=== PATIENT | female | born 2000 | race Caucasian/White ===

== ENCOUNTER 2022-01-30 08:46 | Emergency (ER) | payer BC ==
--- OUTSIDE RECORDS SUMMARY | 2022-01-30 08:52 | XMS REPORT | Continuity of Care Document ---
:2000 Author Organization [facility] t Address [address] [place] [address] Care Team Providers Name Role Phone Pcp, Does Not Have A Primary Care Physician Alice CONSTRUCTION ADMINISTRATIVE ASSISTANT Attending Clinician ALICE Attending Clinician Unavailable Payers Payer Name Policy Type Policy Number Effective Date Expiration Date S ource Problems Condition Condition Condition Status Onset Resolution Last Treating Co mments Source Name Details Category Date Date Treatment Clinician Date Nausea and Nausea and Disease Active U nivers vomiting, vomiting, 16 ity of intract[place] 00 Medical vomiting vomiting Branch not not specified, specified, unspecifie unspecifie d vomiting d vomiting type type Fatigue, Fatigue, Disease Active Unive rs unspecifie unspecifie -16 it y of d type d type 00:00: [place] 00 Medical Branch Cough Cough Disease Active Univers 2-16 ity of 00:00: [place] [address] Medical Branch Allergies, Adverse Reactions, Alerts Allergy Allergy Status Severity Reaction(s) Onset Inactive Treating Comm ents Source Name Type Date Date Clinician NO KNOWN Drug Active Univers ALLERGIE Class ity of S [facility] Social History Social Habit Start Date Stop Date Quantity Comments Source Exposure to Not sure University of SARS-CoV-2 [facility] (event) Branch Alcohol intake 2021-12-10 2021-12-10 Lifetime University of 00:00:00 00:00:00 non-drinker [facility] (finding) [place] Tobacco use and 2021-07-18 2021-07-18 Never used Universit y of exposure 00:00:00 00:00:00 [facility] Sex Assigned At 2000 2000 Universit y of 00:00:00 00:00:00 [facility] Smoking Status Start Date Stop Date Source Never smoker [facility] Medications Ordered Filled Start Stop Current Ordering Indication Dosage Frequency Signature Comments Components Source Medication Medication Date Date Medication? Clinician (SIG) Name Name cetirizine 2021- Yes [id number] 10mg Take 1 Univers (ZYRTEC) 10 2-16 -19 tablet by it y of mg tablet 00:00: 04:59 mouth [place] 00 :00 daily for Medical 30 days. Branch cetirizine 2021- Yes [id number] 10mg Take 1 Univers (ZYRTEC) 10 2-16 -19 tablet by it y of mg tablet 00:00: 04:59 mouth [place] 00 :00 daily for Medical 30 days. Branch ondansetron 2021- Yes [id number] 4mg Take 1 Univers 4 mg 2-15 02-21 tablet by ity of disintegrat 00:00[place] 05:59 [place] tablet 00 :00 every 8 Medica l (eight) Branch hours as needed for Nausea and Vomiting (N/V) for up to 5 days. ondansetron 2021- Yes [id number] 4mg Take 1 Univers 4 mg 2-15 02-21 tablet by ity of disintegrat 00:00[place] 05:59 [place] tablet 00 :00 every 8 Medica l (eight) Branch hours as needed for Nausea and Vomiting (N/V) for up to 5 days. XULANE Yes APPLY 1 Univers 150-35 1-28 PATCH TO ity of mcg/24 hr 00:00: SKIN [place] patch 00 TRANSDERMA Medical L WEEKLY Branch FOR 84 DAYS XULANE Yes APPLY 1 Univers 150-35 1-28 PATCH TO ity of mcg/24 hr 00:00: SKIN [place] patch 00 TRANSDERMA Medical L WEEKLY Branch FOR 84 DAYS Vital Signs Vital Name Observation Time Observation Value Comments Source Systolic blood 2021-12-10 17:21:00 106 mm[Hg] Univer sity of pressure [facility] Diastolic blood 2021-12-10 17:21:00 64 mm[Hg] Unive rsity of [facility] Heart rate 2021-12-10 17:21:00 81 /min [facility] Body temperature 2021-12-10 17:21:00 36.61 Jessika [facility] Body height 2021-12-10 17:21:00 162.6 cm [facility] Body weight 2021-12-10 17:21:00 76.204 kg [facility] BMI 2021-12-10 17:21:00 28.84 kg/m2 [facility] Oxygen saturation in 2021-12-10 17:21:00 97 /min [facility] Arterial blood by [facility] Pulse oximetry Branch Procedures This patient has no known procedures. Encounters Start End Encounter Admission Attending Care Care Encounter Source Date/Time Date/Time Type Type Clinicians Facility Department ID 2021-12-12 2021-12-12 Telephone Alice [facility] [id number] [facility] 00:00:00 00:00:00 [place] [id number] it y of [place] [id number] [place] as JIMY?BLEA [id number] [address] MEDICAL OFFICE BUILDING 2021-12-10 2021-12-10 Outpatient R ALICE [facility] [id number] Univers 11:00:00 11:57:28 KELLI lee [facility] 2021-12-10 2021-12-10 Office Alice [facility] [id number] Univers 11:00:00 11:57:28 Visit [place] [id number] it y of [place] [id number] [place] as JIMY?BLEA [id number] [address] MEDICAL OFFICE BUILDING Results This patient has no known results.
[2022-01-30 09:27] LABS: Urine Blood 2+ (Negative); Urine Glucose Negative (Negative); Urine Protein Negative (Negative); Urine pH 6.5 (5.0-7.0)
[2022-01-30 09:32] LABS: Absolute Lymphocytes (CBC) 3.6 K/uL (0.7-4.9); Hematocrit 44.6 % (36.0-45.0); Lymphocytes % 43.8 % (15.3-44.8); MPV 7.8 fL (7.6-11.3); RBC Red Blood Cell Count 5.23 M/uL (3.86-4.86)
[2022-01-30 09:41] LABS: BUN Blood Urea Nitrogen 11 mg/dL (7-18); Bicarbonate 27 mmol/L (21-32); Glucose Level 84 mg/dL (74-106); Potassium 4.1 mmol/L (3.5-5.1); Sodium Level 138 mmol/L (136-145)
[2022-01-30 10:00] LABS: Urine Bacteria 20-50 /HPF (<20)
--- NOTE | 2022-01-30 10:16 | RAD REPORT ---
EXAM DESCRIPTION: CT - Stone Protocol - 01/30/2022 10:06 am CLINICAL HISTORY: Flank pain. FLANK PAIN COMPARISON: No comparisons TECHNIQUE: Axial images were obtained without oral or IV contrast. Lack of contrast limits solid org an and vascular assessment. The [id number] spans the entirety of the system partially obscuring uppermost abdomen and lung bases. Coronal reformatted images were obtained and reviewed. All CT scans are performed using dose optimization technique as appropriate and may include automated exposure control or mA/KV adjustment according to patient size. FINDINGS: The lower lung patel are clear. Imaged portions of the liver and spleen show no suspicious findings on non-contrast imaging. The panc reas and adrenal glands are normal. No pathologic lymphadenopathy in the abdomen or pelvis. 3 mm calculus is suspected in the distal right ureter with mild right hydronephrosis. Additional 3 mm stone is also present in the inferior calyx right kidney. 2 mm calculus is seen midpole lateral gonzález x left kidney. No bowel obstruction, free air, free fluid or abscess. Normal appendix noted. No significant bony abnormality. IMPRESSION: 3 mm calculus in the distal right ureter is suspected with mild right hydronephrosis. Additional bilateral nephrolithiasis.
[2022-01-30] MEDS ORDERED: ONDANSETRON 4 MG/2 ML VIAL ONE (10:18)
[2022-01-30] MEDS ORDERED: KETOROLAC 30 MG/ML INJ ONE (10:18)
[2022-01-30] MEDS ORDERED: TAMSULOSIN 0.4 MG SR CAP ONE (10:47)
[2022-01-30] MEDS ORDERED: MAGNESIUM SULFATE 1 gm IVPB 1 GM/100 ML BAG IV ONE (10:48)
--- NOTE | 2022-01-30 11:21 | ER ---
Nurse's Notes [facility] Name: Yahaira So Age: 21 yrs Sex: Female : 2000 Arrival Date: 01/30/2022 Time: 08:51 Bed 17 Private MD: Diagnosis: Calculus of kidney with calculus of ureter Presentation: 01/30 09:08 Chief complaint: Patient states: R flank pain, N/V and difficulty urinating that ph started this morning, hx of kidney stones and states that this feels the same. Coronavirus screen: Vaccine status: Patient reports receiving the 2nd dose of the covid vaccine. Ebola Screen: No symptoms or risks identified at this time. Initial Sepsis Screen: Does the patient meet any 2 criteria? No. Patient's initial sepsis screen is negative. Does the patient have a suspected source of infection? No. Patient's initial sepsis screen is negative. Risk Assessment: Do you want to hurt yourself or someone else? Patient reports no desire to harm self or others. Onset of symptoms was January 30, 2022. 09:08 Method Of Arrival: Ambulatory ph 09:08 Acuity: LISA 3 ph Triage Assessment: 09:12 General: Appears in no apparent distress. comfortable, Behavior is calm, cooperative, ph appropriate for age, Denies fever. Pain: Complains of pain in posterior aspect of right lateral abdomen and anterior aspect of right lateral abdomen Pain radiates to right lower quadrant. Neuro: Level of Consciousness is awake, alert, obeys commands, Oriented to person, place, time, situation. Cardiovascular: Capillary refill < 3 seconds in bilateral fingers Patient's skin is warm and dry. Respiratory: Airway is patent Respiratory effort is even, unlabored. GI: Reports lower abdominal pain, nausea, vomiting. : Reports inability to void, pain in right flank(s). Derm: Skin is intact, is healthy with good turgor, Skin is pink, warm \T\ dry. Musculoskeletal: Circulation, motion, and sensation intact. Range of motion: intact in all extremities. 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 - Social history:: Smoking status: Patient denies any tobacco usage or history of. Screenin:03 Abuse screen: Denies threats or abuse. Denies injuries from another. Nutritional ph screening: No deficits noted. Tuberculosis screening: No symptoms or risk factors identified. Fall Risk None identified. Assessment: 09:14 General: SEE TRIAGE ASSESSMENT. ph 11:21 Reassessment: Patient appears in no apparent distress at this time. Patient and/or ph family updated on plan of care and expected duration. Pain level reassessed. Patient is alert, oriented x 3, equal unlabored respirations, skin warm/dry/pink. D/C pending completion of IV magnesium. Vital Signs: 09:08 BP 111 / 84; Pulse 82; Resp 18; Temp 97.5; Pulse Ox 99% on R/A; Weight 74.84 kg; Height ph 5 ft. 4 in. (162.56 cm); Pain 3/10; 11:00 BP 108 / 78; Pulse 76; Resp 18; Pulse Ox 99% on R/A; ph 12:00 BP 115 / 76; Pulse 79; Resp 16; Temp 97.9; Pulse Ox 100% on R/A; ph 09:08 Body Mass Index 28.32 (74.84 kg, 162.56 cm) ph ED Course: 08:51 Patient arrived in ED. mr 08:56 Lela Mckeon, [facility] kb 08:56 Leon Hunt MD is Attending Physician. kb 09:03 Sabrina Loo, LJ is Primary Nurse. ph 09:11 Triage completed. ph 09:11 Arm band placed on right wrist. ph 09:14 Patient has correct armband on for positive identification. Bed in low position. Call ph light in reach. Side rails up X 1. Pulse ox on. NIBP on. Door closed. Noise minimized. Warm blanket given. Pillow given. Head of bed. 09:14 Initial lab(s) drawn, by ED staff, sent to lab. Urine collected: clean catch specimen. ph Inserted saline lock: 20 gauge in right antecubital area, using aseptic technique. Blood collected. 10:09 CT Stone Protocol In Process Unspecified. EDMS 12:40 No provider procedures requiring assistance completed. IV discontinued, intact, ph bleeding controlled, No redness/swelling at site. Pressure dressing applied. Administered Medications: 10:10 Drug: Zofran (Ondansetron) 4 mg Route: IVP; Site: right antecubital; ph 12:40 Follow up: Response: No adverse reaction ph 10:15 Drug: Ketorolac 15 mg Route: IVP; Site: right antecubital; ph 12:40 Follow up: Response: No adverse reaction ph 11:10 Drug: Magnesium Sulfate 1 grams Route: IVPB; Infused Over: 1 hrs; Site: right ph antecubital; 12:40 Follow up: Response: No adverse reaction; IV Status: Completed infusion ph 11:21 Not Given (Patient Refused): Flomax (tamsulosin) 0.4 mg PO once ph Outcome: 11:20 Discharge ordered by . kb 12:43 Patient left the ED. ph 12:43 Discharged to home ambulatory, with significant other. ph 12:43 Condition: good 12:43 Discharge instructions given to patient, Instructed on discharge instructions, follow up and referral plans. medication usage, Demonstrated understanding of instructions, follow-up care, medications, Prescriptions given X 3. Signatures: Dispatcher [employer] EDLela Soto, MARYSE DOUGLASS-Marie Reilly Patricia, RN RN ph
--- NOTE | 2022-01-30 11:21 | EDPHYS ---
Physician Documentation [facility] Name: Yahaira So Age: 21 yrs Sex: Female : 2000 Arrival Date: 01/30/2022 Time: 08:51 Bed 17 Private MD: ED Physician Leon Hunt HPI: 01/30 09:39 This 21 yrs old Female presents to ER via Ambulatory with complaints of Flank Pain, kb Back Pain. 09:39 The patient complains of pain in the right flank. The pain does not radiate. Onset: The kb symptoms/episode began/occurred this morning. Modifying factors: The symptoms are alleviated by nothing. the symptoms are aggravated by nothing. Associated signs and symptoms: Pertinent positives: difficulty urinating. Severity of pain: At its worst the pain was moderate in the emergency department the pain is unchanged. The patient has not experienced similar symptoms in the past. The patient has not recently seen a physician. 09:40 Pt reports right lateral abd pain that started this morning. States she has had kidney kb stones in the past and this feels the same. 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 - Social history:: Smoking status: Patient denies any tobacco usage or history of. ROS: 09:39 Constitutional: Negative for fever, chills, and weight loss. kb 09:39 Back: Positive for flank pain, on the right. 09:39 All other systems are negative. 09:40 : Positive for difficulty urinating. kb Exam: 09:39 Constitutional: This is a well developed, well nourished patient who is awake, alert, kb and in no acute distress. Head/Face: Normocephalic, atraumatic. ENT: Moist Mucous membranes Cardiovascular: Regular rate and rhythm with a normal S1 and S2. No gallops, murmurs, or rubs. No pulse deficits. Respiratory: Respirations even and unlabored. No increased work of breathing. Talking in full sentences Back: No spinal tenderness. No costovertebral tenderness. Full range of motion. Skin: Warm, dry with normal turgor. Normal color. MS/ Extremity: Pulses equal, no cyanosis. Neurovascular intact. Full, normal range of motion. Neuro: Awake and alert, GCS 15, oriented to person, place, time, and situation. Moves all extremities. Normal gait. Psych: Awake, alert, with orientation to person, place and time. Behavior, mood, and affect are within normal limits. 09:39 Abdomen/GI: Inspection: abdomen appears normal, Bowel sounds: normal, in all quadrants, Palpation: soft, in all quadrants, mild abdominal tenderness, in the anterior aspect of right lateral abdomen and right lower quadrant. Vital Signs: 09:08 BP 111 / 84; Pulse 82; Resp 18; Temp 97.5; Pulse Ox 99% on R/A; Weight 74.84 kg; Height ph 5 ft. 4 in. (162.56 cm); Pain 3/10; 11:00 BP 108 / 78; Pulse 76; Resp 18; Pulse Ox 99% on R/A; ph 12:00 BP 115 / 76; Pulse 79; Resp 16; Temp 97.9; Pulse Ox 100% on R/A; ph 09:08 Body Mass Index 28.32 (74.84 kg, 162.56 cm) ph MDM: 09:00 Patient medically screened. kb 09:38 Data reviewed: vital signs, nurses notes. Data interpreted: Pulse oximetry: on room air kb is 99 %. Interpretation: acceptable. 11:20 Counseling: I had a detailed discussion with the patient and/or guardian regarding: the kb historical points, exam findings, and any diagnostic results supporting the discharge/admit diagnosis, lab results, radiology results, the need for outpatient follow up, a urologist, to return to the emergency department if symptoms worsen or persist or if there are any questions or concerns that arise at home. 01/30 09:06 Order name: CBC with Diff; Complete Time: 09:35 kb 01/30 09:06 Order name: Basic Metabolic Panel; Complete Time: 09:42 kb 01/30 09:06 Order name: Urine Microscopic Only; Complete Time: 10:04 kb 01/30 09:27 Order name: Urine Dipstick-Ancillary; Complete Time: 09:28 EDMS 01/30 09:28 Order name: Urine --Ancillary (enter results); Complete Time: 10:01 dh3 01/30 10:08 Order name: Urine Culture EDMS 04/08 09:06 Order name: IV Start; Complete Time: 09:15 kb 0408 09:06 Order name: Urine Dipstick-Ancillary (obtain specimen); Complete Time: 09:16 kb 0408 09:06 Order name: Urine Test (obtain specimen); Complete Time: 09:16 kb 0408 09:06 Order name: CT Stone Protocol; Complete Time: 10:18 kb Administered Medications: 10:10 Drug: Zofran (Ondansetron) 4 mg Route: IVP; Site: right antecubital; ph 12:40 Follow up: Response: No adverse reaction ph 10:15 Drug: Ketorolac 15 mg Route: IVP; Site: right antecubital; ph 12:40 Follow up: Response: No adverse reaction ph 11:10 Drug: Magnesium Sulfate 1 grams Route: IVPB; Infused Over: 1 hrs; Site: right ph antecubital; 12:40 Follow up: Response: No adverse reaction; IV Status: Completed infusion ph 11:21 Not Given (Patient Refused): Flomax (tamsulosin) 0.4 mg PO once ph Disposition Summary: 01/30/22 11:20 Discharge Ordered Location: Home kb Condition: Stable kb Diagnosis - Calculus of kidney with calculus of ureter kb Followup: kb - With: Emergency Department - When: As needed - Reason: Worsening of condition Followup: kb - With: Private Physician - When: 2 - 3 days - Reason: Recheck today's complaints, Continuance of care, Re-evaluation by your physician Discharge Instructions: - Discharge Summary Sheet kb - Kidney Stones, [id number] kb Forms: - Medication Reconciliation Form kb - Thank You Letter kb - Antibiotic Education kb - Prescription Opioid Use kb - Work release form ph - Family Work Release ph Prescriptions: - Flomax 0.4 mg Oral capsule - take 1 capsule by ORAL route once daily 1/2 hour following the same meal each kb day; 10 capsule; Refills: 0, Product Selection Permitted - Zofran 4 mg Oral Tablet - take 1 tablet by ORAL route every 6 hours As needed; 20 tablet; Refills: 0, Product Selection Permitted - Diclofenac Sodium 75 mg Oral tablet,delayed release (DR/EC) - take 1 tablet by ORAL route 2 times per day As needed; 30 tablet; Refills: 0, Product Selection Permitted Addendum: 02/05/2022 18:31 Co-signature as Attending Physician, Leon Hunt MD I agree with the assessment and c humphreys plan of care. Signatures: Dispatcher [employer] Lela Mancilla, HEAD OF HUMAN RESOURCES-C HEAD OF HUMAN RESOURCES-Leon Lizama MD MD cha Hall, Patricia, RN RN ph
[2022-01-30 13:21] VITALS: BP 111/84; TEMP 97.5; O2SAT 99
== END 2022-01-30 12:43 | disposition home or self-care (01) ==
LOC: ER 08:46
DX: N20.2 Calculus of kidney with calculus of ureter (principal); Z87.442 Personal history of urinary calculi
CPT/HCPCS: 96365; 87088; 85025; 87086; 80048; 36415; 81025; 76377; 74176; 96375; 99284; J3475; J2405; 81003; 81015

== ENCOUNTER 2022-02-01 11:06 | Emergency (ER) | payer BC ==
--- OUTSIDE RECORDS SUMMARY | 2022-02-01 11:08 | XMS REPORT | Continuity of Care Document ---
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 Clinician ALICE Attending Clinician Unavailable Payers Payer Name Policy Type Policy Number Effective Date Expiration Date S ource Problems Condition Condition Condition Status Onset Resolution Last Treating Co mments Source Name Details Category Date Date Treatment Clinician Date Nausea and Nausea and Disease Active U nivers vomiting, vomiting, 2-16 ity of intract[place] 00 Medical vomiting vomiting Branch not not specified, specified, unspecifie unspecifie d vomiting d vomiting type type Fatigue, Fatigue, Disease Active Unive rs unspecifie unspecifie 2-16 it y of d type d type 00:00: [place] [address] Medical [place] Cough Cough Disease Active Univers 2-16 ity of 00:00: [address] Branch Allergies, Adverse Reactions, Alerts Allergy Allergy Status Severity Reaction(s) Onset Inactive Treating Comm ents Source Name Type Date Date Clinician NO KNOWN Drug Active Univers ALLERGIE Class ity of S [facility] Social History Social Habit Start Date Stop Date Quantity Comments Source Exposure to Not sure University of SARS-CoV-2 [facility] (event) Branch Alcohol intake 2021-12-10 2021-12-10 Lifetime University of 00:00:00 00:00:[address] non-[address] [facility] (finding) [place] Tobacco use and 2021-07-18 2021-07-18 Never used Universit y of exposure 00:00:00 00:00:00 [facility] Sex Assigned At 2000 2000 Universit y of 00:00:00 00:00:00 [facility] Smoking Status Start Date Stop Date Source Never smoker [facility] Medications Ordered Filled Start Stop Current Ordering Indication Dosage Frequency Signature Comments Components Source Medication Medication Date Date Medication? Clinician (SIG) Name Name cetirizine 2021- Yes [id number] 10mg Take 1 Univers (ZYRTEC) 10 2-16 -19 tablet by it y of mg tablet 00:00: 04:59 mouth [place] 00 :00 daily for Medical 30 days. Branch cetirizine 2021- Yes [id number] 10mg Take 1 Univers (ZYRTEC) 10 2-16 -19 tablet by it y of mg tablet 00:00: 04:59 mouth [place] 00 :00 daily for Medical 30 days. Branch ondansetron 2021- Yes [id number] 4mg Take 1 Univers 4 mg 2-15 -21 tablet by ity of disintegrat 00:00: 05:59 [place] tablet 00 :00 every 8 Medica l (eight) Branch hours as needed for Nausea and Vomiting (N/V) for up to 5 days. ondansetron 2021- Yes [id number] 4mg Take 1 Univers 4 mg 2-15 -21 tablet by ity of disintegrat 00:00: 05:59 [...] 17:21:00 106 mm[Hg] Univer sity of pressure [facility] Diastolic blood 2021-12-10 17:21:00 64 mm[Hg] Unive rsity of [facility] Heart rate 2021-12-10 17:21:00 81 /min [facility] acute hospital Body temperature 2021-12-10 17:21:00 36.61 Jessika [facility] height 2021-12-10 17:21:00 162.6 cm [facility] acute hospital Body weight 2021-12-10 17:21:00 76.204 kg [facility] acute hospital BMI 2021-12-10 17:21:00 28.84 kg/m2 General acute hospital Oxygen saturation in 2021-12-10 17:21:00 97 /min [facility] Arterial blood by [facility] Pulse oximetry Branch Procedures This patient has no known procedures. Encounters Start End Encounter Admission Attending Care Care Encounter Source Date/Time Date/Time Type Type Clinicians Facility Department ID 2021-12-12 2021-12-12 Telephone Alice [facility] [id number] Univers 00:00:00 00:00:00 [place] [id number] it y of [place] [id number] Allen as JIMY?BLEA [id number] [address] MEDICAL OFFICE BUILDING 2021-12-10 2021-12-10 Outpatient R ALICE [facility] [id number] Univers 11:00:00 11:57:28 KELLI yeseniamarie [facility] 2021-12-10 2021-12-10 Office Alice [facility] [id number] Univers 11:00:00 11:57:28 Visit [place] [id number] it y of [place] [id number] [place] as JIMY?BLEA [id number] [address] MEDICAL OFFICE BUILDING Results This patient has no known results.
[2022-02-01 12:20] LABS: Urine Blood 3+ (Negative); Urine Glucose Negative (Negative); Urine Protein Trace (Negative); Urine Specific Gravity 1.025 (1.005-1.030); Urine pH 6.5 (5.0-7.0)
[2022-02-01] MEDS ORDERED: CEFTRIAXONE 1000 MG/VIAL ONE (12:27)
[2022-02-01] MEDS ORDERED: ONDANSETRON 4 MG/2 ML VIAL ONE ×2 (12:28→14:44)
[2022-02-01] MEDS ORDERED: NA CHLORIDE 0.9% 100 ML IV ONE (12:28)
[2022-02-01] MEDS ORDERED: NA CHLORIDE 0.9% 1,000 ML ONE ×2 (12:28→12:40)
[2022-02-01] MEDS ORDERED: KETOROLAC 30 MG/ML INJ ONE (12:28)
[2022-02-01] MEDS ORDERED: MORPHINE 4 MG/ML SYR ONE ×2 (12:33→14:44)
[2022-02-01 12:38] LABS: Hematocrit 42.8 % (36.0-45.0); Lymphocytes % 38.8 % (15.3-44.8); MPV 7.6 fL (7.6-11.3); RBC Red Blood Cell Count 5.06 M/uL (3.86-4.86)
[2022-02-01 12:56] LABS: ALT/SGPT 19 U/L (12-78); AST/SGOT 13 U/L (15-37); Albumin 3.4 g/dL (3.4-5.0); Alkaline Phosphatase 86 U/L (45-117); BUN Blood Urea Nitrogen 11 mg/dL (7-18); Bicarbonate 24 mmol/L (21-32); Bilirubin Total 0.5 mg/dL (0.2-1.0); Glucose Level 85 mg/dL (74-106); Lipase 57 U/L (73-393); Potassium 4.3 mmol/L (3.5-5.1); Protein, Total 7.3 g/dL (6.4-8.2); Sodium Level 139 mmol/L (136-145)
--- NOTE | 2022-02-01 13:10 | RAD REPORT ---
EXAM DESCRIPTION: CTStone Protocol - 02/01/2022 12:53 pm CLINICAL HISTORY: KIDNEY STONES COMPARISON: Stone Protocol dated 01/30/2022 TECHNIQUE: CT of the abdomen and pelvis was performed. All CT scans are performed using dose optimization technique as appropriate and may include automated exposure control or mA/KV adjustment according to patient size. FINDINGS: Lower chest: No acute abnormality. Liver: No acute abnormality or suspicious lesions. Biliary: No biliary ductal dilatation. Stomach: No significant focal abnormality. Duodenum: No significant focal abnormality. Pancreas: No significant abnormality. Spleen: No significant abnormality. Adrenal: No suspicious lesions. Kidney/ureter: Mild right-sided hydroureteronephrosis. Two stones are now present in the right distal ureter, the larger stone measuring nearly 5 millimeters. On the previous CT, only 1 stone was presen t in the right ureter. Retroperitoneum: No retroperitoneal adenopathy. Vascular: No aneurysm. Bowel: No significant focal abnormality. Normal appendix . Peritoneum: No ascites or free air. Bladder: Grossly unremarkable. Reproductive: Simple appearing right adnexal cyst . Bones: No acute fracture. Other: n/a IMPRESSION: Mild right-sided hydroureteronephrosis now with 2 stones in the right distal ureter (pre viously one on 01/30/22) with the larger stone measuring 5 millimeters.
--- NOTE | 2022-02-01 13:50 | ER ---
Nurse's Notes [facility] Name: Yahaira So Age: 21 yrs Sex: Female : 2000 Arrival Date: 02/01/2022 Time: 11:09 Bed 6 Private MD: Diagnosis: Hydronephrosis with renal and ureteral calculous obstruction-3 mm and 5 mm distal right ureter;UTI/ Urinary tract infection, site not specified Presentation: 02/01 11:22 Chief complaint: Patient states: R flank pain with nausea started last night. Urinary ll1 frequency with oliguria. No fever. Coronavirus screen: Vaccine status: Patient reports receiving the 2nd dose of the covid vaccine. Client denies travel out of the [place] in the last 14 days. At this time, the client does not indicate any symptoms associated with coronavirus-19. Ebola Screen: Patient denies travel to an Ebola-affected area in the 21 days before illness onset. Initial Sepsis Screen: Does the patient meet any 2 criteria? No. Patient's initial sepsis screen is negative. Does the patient have a suspected source of infection? Yes: Dysuria/Frequency/Urgency/UTI. Risk Assessment: Do you want to hurt yourself or someone else? Patient reports no desire to harm self or others. Onset of symptoms was January 31, 2022. 11:22 Method Of Arrival: Ambulatory 1 11:22 Acuity: LISA 3 ll1 Triage Assessment: 11:25 General: Appears uncomfortable, Behavior is calm, cooperative, appropriate for age. ll1 Pain: Complains of pain in R flank Quality of pain is described as aching. GI: Reports lower abdominal pain, nausea. : Reports urinary frequency. Historical: - Allergies: 11:24 "cant swallow pills"; ll1 - PMHx: 11:24 Kidney stone; ll1 - PSHx: 11:24 None; ll1 - Immunization history:: Client reports receiving the 2nd dose of the Covid vaccine. - Social history:: Smoking status: Patient denies any tobacco usage or history of. - Family history:: not pertinent. Screenin:19 Abuse screen: Denies threats or abuse. Denies injuries from another. Nutritional ph screening: No deficits noted. Tuberculosis screening: No symptoms or risk factors identified. Fall Risk None identified. Assessment: 12:36 General: Appears in no apparent distress. uncomfortable, Behavior is calm, cooperative, ph appropriate for age. Pain: Complains of pain in posterior aspect of right lateral abdomen and anterior aspect of right lateral abdomen. Neuro: Level of Consciousness is awake, alert, obeys commands, Oriented to person, place, time, situation. Cardiovascular: Capillary refill < 3 seconds in bilateral fingers Patient's skin is warm and dry. Respiratory: Airway is patent Respiratory effort is even, unlabored. GI: Abdomen is non-distended, Abd is soft and non tender X 4 quads. Reports nausea, vomiting. : Reports inability to void, pain in right flank(s). Derm: Skin is intact, Skin is pink, warm \\T\\ dry. Musculoskeletal: Circulation, motion, and sensation intact. Range of motion: intact in all extremities. 13:42 Reassessment: Patient appears in no apparent distress at this time. Patient and/or ph family updated on plan of care and expected duration. Pain level reassessed. Patient is alert, oriented x 3, equal unlabored respirations, skin warm/dry/pink. Dr Hunt at bedside to speak w/ pt about CT results and possible admission. 14:10 Reassessment: Patient appears in no apparent distress at this time. Patient and/or ph family updated on plan of care and expected duration. Pain level reassessed. Patient is alert, oriented x 3, equal unlabored respirations, skin warm/dry/pink. 14:46 Reassessment: Patient appears in no apparent distress at this time. Patient and/or ph family updated on plan of care and expected duration. Pain level reassessed. Patient is alert, oriented x 3, equal unlabored respirations, skin warm/dry/pink. D/C pending completion of IV fluids. 15:35 Reassessment: Patient appears in no apparent distress at this time. Patient and/or ph family updated on plan of care and expected duration. Pain level reassessed. Patient is alert, oriented x 3, equal unlabored respirations, skin warm/dry/pink. Attempted to d/c patient, she reports that nausea and pain have returned, ERP notified, see MAR. 16:09 Reassessment: Again attempted to d/c pt, pt continues to c/o pain and nausea, refused ph PO states, " I can't swallow pills." ERP notified, see MAR. 16:55 Reassessment: Patient appears in no apparent distress at this time. Patient and/or ph family updated on plan of care and expected duration. Pain level reassessed. Patient is alert, oriented x 3, equal unlabored respirations, skin warm/dry/pink. Pt reports that pain has improved after medication, continues to report nausea, small amount of vomiting noted, pt states, " I am ready to go home though." Instructed pt to return to ED if she is unable to hold down fluids at home, emphasized the importance of staying hydrated at home in order to pass kidney stones, pt states that she will return to ED if vomiting cannot be controlled at home. Vital Signs: 11:22 BP 121 / 89; Pulse 82; Resp 17; Temp 98.2; Pulse Ox 97% ; Weight 73.94 kg; Height 5 ft. ll1 4 in. (162.56 cm); Pain 9/10; 13:00 BP 110 / 71; Pulse 85; Resp 18; Pulse Ox 100% on R/A; ph 14:00 BP 119 / 87; Pulse 92; Resp 16; Pulse Ox 98% on R/A; ph 15:00 BP 123 / 80; Pulse 95; Resp 16; Pulse Ox 100% on R/A; ph 16:11 BP 119 / 83; Pulse 97; Resp 18; Pulse Ox 100% on R/A; ph 11:22 Body Mass Index 27.98 (73.94 kg, 162.56 cm) ll1 ED Course: 11:09 Patient arrived in ED. rg4 11:24 Triage completed. ll1 11:24 Arm band placed on Patient placed in an exam room, on a stretcher. ll1 12:14 Leon Hunt MD is Attending Physician. christie 12:19 Sabrina Loo, JL is Primary Nurse. ph 12:19 Patient has correct armband on for positive identification. Bed in low position. Call ph light in reach. Side rails up X 1. Pulse ox on. NIBP on. Door closed. Noise minimized. 12:36 Initial lab(s) drawn, by me, sent to lab. Inserted saline lock: 20 gauge in right ph antecubital area, using aseptic technique. Blood collected. 12:55 CT Stone Protocol In Process Unspecified. EDMS 13:48 Ronal Hanna MD is Referral Physician. christie 16:15 No provider procedures requiring assistance completed. ph 17:00 IV discontinued, intact, bleeding controlled, No redness/swelling at site. Pressure ph dressing applied. Administered Medications: 12:33 Drug: Zofran (Ondansetron) 4 mg Route: IVP; Site: right antecubital; ph 13:00 Follow up: Response: No adverse reaction; Nausea is decreased ph 12:34 Drug: Ketorolac 30 mg Route: IVP; Site: right antecubital; ph 13:00 Follow up: Response: No adverse reaction; Pain is decreased ph 12:37 Drug: morphine 4 mg Route: IVP; Site: right antecubital; ph 13:00 Follow up: Response: No adverse reaction; Pain is decreased; RASS: Alert and Calm (0) ph 12:39 Drug: NS 0.9% 1000 ml Route: IV; Rate: 1 bolus; Site: right antecubital; ph 14:00 Follow up: Response: No adverse reaction; IV Status: Completed infusion; IV Intake: ph 1000ml 14:07 Drug: Rocephin (cefTRIAXone) 1 grams Route: IV; Rate: per protocol; Site: left vg1 antecubital; 14:30 Follow up: Response: No adverse reaction; IV Status: Completed infusion ph 14:43 Drug: Zofran (Ondansetron) 4 mg Route: IVP; Site: left antecubital; ph 15:00 Follow up: Response: No adverse reaction; Nausea is decreased ph 14:44 Drug: NS 0.9% 1000 ml Route: IV; Rate: 1 bolus; Site: left antecubital; ph 15:00 Follow up: IV Status: Completed infusion; IV Intake: 1000ml ph 14:45 Drug: morphine 4 mg Route: IVP; Site: left antecubital; ph 15:00 Follow up: Response: No adverse reaction; Pain is decreased; RASS: Drowsy (-1) ph 15:40 Drug: morphine 2 mg Route: IVP; Site: left antecubital; ph 16:00 Follow up: Response: No adverse reaction; Pain is unchanged, physician notified ph 16:12 CANCELLED (Duplicate Order): morphine 2 mg IVP once; (PAIN>8) RASS on ADMN: Combtv4, ph Very Agttd3, Agttd2, Rstlss1, AlertClm0, Drwsy-1, LtSdtn-2, ModSdtn-3, DpSdtn-4, UnArsble-5 x2 16:13 Not Given (Patient Refused): Flomax (tamsulosin) 0.4 mg PO once ph 16:13 Drug: Phenergan (promethazine) 12.5 mg Route: IVP; Site: left antecubital; ph 16:50 Follow up: Response: No adverse reaction; Nausea unchanged ph 16:13 Drug: Dilaudid (HYDROmorphone) 1 mg {Note: mixed into fluid bolus.} Route: IVP; Site: ph left antecubital; 16:30 Follow up: Response: No adverse reaction; Pain is decreased; RASS: Drowsy (-1) ph 16:13 Drug: NS 0.9% 500 ml Route: IV; Rate: bolus; Site: left antecubital; ph 16:50 Follow up: Response: No adverse reaction; IV Status: Completed infusion ph 16:14 Not Given (Patient Refused): Cipro (ciprofloxacin) 250 mg PO once ph Intake: 14:00 IV: 1000ml; Total: 1000ml. ph 15:00 IV: 1000ml; Total: 2000ml. ph Outcome: 13:50 Discharge ordered by . christie 17:04 Patient left the ED. ss 17:04 Discharged to home via wheelchair, with significant other. ph 17:04 Condition: good 17:04 Discharge instructions given to patient, significant other, Instructed on discharge instructions, follow up and referral plans. medication usage, Return to ED if vomiting cannot be controlled at home Demonstrated understanding of instructions, follow-up care, medications, Prescriptions given X 4. Signatures: Dispatcher [employer] EDMS Leon Hunt MD MD cha Smirch, Shelby, RN RN ss Sabrina Loo RN RN ph Naomi Stout Victoria RN RN juan carlos1 Ryan Valle, RN RN ll1 Corrections: (The following items were deleted from the chart) 11:24 11:24 PMHx: None; ll1 ll1 19:43 16:09 Reassessment: Again attempted to d/c pt, pt continues to c/o pain and nausea, ERP ph notified, see MAR ph
--- NOTE | 2022-02-01 13:51 | EDPHYS ---
Physician Documentation [facility] Name: Yahaira So Age: 21 yrs Sex: Female : 2000 Arrival Date: 02/01/2022 Time: 11:09 Bed 6 Private MD: KOSTAS Physician Leon Hunt HPI: 02/01 13:10 This 21 yrs old Female presents to ER via Ambulatory with complaints of christie Possible Kidney Stone. 13:10 The patient presents with abdominal pain in the lower abdomen, right lower quadrant. christie Onset: The symptoms/episode began/occurred 2 day(s) ago. The patient complains of pain in the right mid back. The pain radiates to the right mid back and right low back. Onset: The symptoms/episode began/occurred 2 day(s) ago. Modifying factors: The symptoms are alleviated by nothing. the symptoms are aggravated by nothing. The symptoms radiate to the right flank. Associated signs and symptoms: The patient has no apparent associated signs or symptoms. Associated signs and symptoms: none. Modifying factors: The symptoms are alleviated by nothing, the symptoms are aggravated by nothing. Historical: - Allergies: 11:24 "cant swallow pills"; ll1 - PMHx: 11:24 Kidney stone; ll1 - PSHx: 11:24 None; ll1 - Immunization history:: Client reports receiving the 2nd dose of the Covid vaccine. - Social history:: Smoking status: Patient denies any tobacco usage or history of. - Family history:: not pertinent. ROS: 13:10 Constitutional: Negative for fever, chills, and weight loss, Eyes: Negative for injury, christie pain, redness, and discharge, ENT: Negative for injury, pain, and discharge, Neck: Negative for injury, pain, and swelling, Cardiovascular: Negative for chest pain, palpitations, and edema, Respiratory: Negative for shortness of breath, cough, wheezing, and pleuritic chest pain, : Negative for injury, bleeding, discharge, and swelling, MS/Extremity: Negative for injury and deformity, Skin: Negative for injury, rash, and discoloration, Neuro: Negative for headache, weakness, numbness, tingling, and seizure. 13:10 Abdomen/GI: Positive for abdominal pain, nausea, vomiting, of the posterior aspect of right lateral abdomen, anterior aspect of right lateral abdomen and right lower quadrant. Exam: 13:10 Constitutional: This is a well developed, well nourished patient who is awake, alert, christie and in no acute distress. Head/Face: Normocephalic, atraumatic. Eyes: Pupils equal round and reactive to light, extra-ocular motions intact. Lids and lashes normal. Conjunctiva and sclera are non-icteric and not injected. Cornea within normal limits. Periorbital areas with no swelling, redness, or edema. ENT: Nares patent. No nasal discharge, no septal abnormalities noted. Tympanic membranes are normal and external auditory canals are clear. Oropharynx with no redness, swelling, or masses, exudates, or evidence of obstruction, uvula midline. Mucous membranes moist. Neck: Trachea midline, no thyromegaly or masses palpated, and no cervical lymphadenopathy. Supple, full range of motion without nuchal rigidity, or vertebral point tenderness. No Meningismus. Chest/axilla: Normal chest wall appearance and motion. Nontender with no deformity. No lesions are appreciated. Cardiovascular: Regular rate and rhythm with a normal S1 and S2. No gallops, murmurs, or rubs. Normal PMI, no JVD. No pulse deficits. Respiratory: Lungs have equal breath sounds bilaterally, clear to auscultation and percussion. No rales, rhonchi or wheezes noted. No increased work of breathing, no retractions or nasal flaring. Back: No spinal tenderness. No costovertebral tenderness. Full range of motion. Skin: Warm, dry with normal turgor. Normal color with no rashes, no lesions, and no evidence of cellulitis. MS/ Extremity: Pulses equal, no cyanosis. Neurovascular intact. Full, normal range of motion. Neuro: Awake and alert, GCS 15, oriented to person, place, time, and situation. Cranial nerves II-XII grossly intact. Motor strength 5/5 in all extremities. Sensory grossly intact. Cerebellar exam normal. Normal gait. 13:10 Abdomen/GI: Inspection: abdomen appears normal, Bowel sounds: normal, Palpation: mild abdominal tenderness, in the posterior aspect of right lateral abdomen, anterior aspect of right lateral abdomen and right lower quadrant, Liver: no appreciated palpable abnormalities, Hernia: not appreciated. Vital Signs: 11:22 BP 121 / 89; Pulse 82; Resp 17; Temp 98.2; Pulse Ox 97% ; Weight 73.94 kg; Height 5 ft. ll1 4 in. (162.56 cm); Pain 9/10; 13:00 BP 110 / 71; Pulse 85; Resp 18; Pulse Ox 100% on R/A; ph 14:00 BP 119 / 87; Pulse 92; Resp 16; Pulse Ox 98% on R/A; ph 15:00 BP 123 / 80; Pulse 95; Resp 16; Pulse Ox 100% on R/A; ph 16:11 BP 119 / 83; Pulse 97; Resp 18; Pulse Ox 100% on R/A; ph 11:22 Body Mass Index 27.98 (73.94 kg, 162.56 cm) ll1 MDM: 12:14 Patient medically screened. [facility] 13:13 Differential diagnosis: nephrolithiasis, pyelonephritis, UTI, diverticulitis, christie pancreatitis, appendicitis, Cholelithiasis, Hepatitis, Mesenteric ischemia or infarction, non-specific abd pain, pancreatitis, Peptic Ulcer Disease, Pyelonephritis, Ureterolithiasis, urinary tract infection. Data reviewed: vital signs, nurses notes, lab test result(s), radiologic studies, CT scan. Data interpreted: automation qa analyst: rate is 82 beats/min, rhythm is regular, Pulse oximetry: on room air is 97 %. Counseling: I had a detailed discussion with the patient and/or guardian regarding: the historical points, exam findings, and any diagnostic results supporting the discharge/admit diagnosis, lab results, radiology results. 02/01 12:15 Order name: CBC with Diff; Complete Time: 12:40 [facility] 02/01 12:15 Order name: CMP; Complete Time: 13:08 [facility] 02/01 12:15 Order name: Lipase; Complete Time: 13:08 [facility] 02/01 12:20 Order name: Urine Dipstick-Ancillary; Complete Time: 12:34 EDMS 02/01 12:15 Order name: CT Stone Protocol; Complete Time: 13:38 [facility] 02/01 12:15 Order name: IV Saline Lock; Complete Time: 12:39 [facility] 02/01 12:15 Order name: Labs collected and sent; Complete Time: 12:39 [facility] 02/01 12:15 Order name: Urine Dipstick-Ancillary (obtain specimen); Complete Time: 12:20 [facility] 02/01 12:15 Order name: Urine Test (obtain specimen); Complete Time: 12:20 christie Administered Medications: 12:33 Drug: Zofran (Ondansetron) 4 mg Route: IVP; Site: right antecubital; ph 13:00 Follow up: Response: No adverse reaction; Nausea is decreased ph 12:34 Drug: Ketorolac 30 mg Route: IVP; Site: right antecubital; ph 13:00 Follow up: Response: No adverse reaction; Pain is decreased ph 12:37 Drug: morphine 4 mg Route: IVP; Site: right antecubital; ph 13:00 Follow up: Response: No adverse reaction; Pain is decreased; RASS: Alert and Calm (0) ph 12:39 Drug: NS 0.9% 1000 ml Route: IV; Rate: 1 bolus; Site: right antecubital; ph 14:00 Follow up: Response: No adverse reaction; IV Status: Completed infusion; IV Intake: ph 1000ml 14:07 Drug: Rocephin (cefTRIAXone) 1 grams Route: IV; Rate: per protocol; Site: left vg1 antecubital; 14:30 Follow up: Response: No adverse reaction; IV Status: Completed infusion ph 14:43 Drug: Zofran (Ondansetron) 4 mg Route: IVP; Site: left antecubital; ph 15:00 Follow up: Response: No adverse reaction; Nausea is decreased ph 14:44 Drug: NS 0.9% 1000 ml Route: IV; Rate: 1 bolus; Site: left antecubital; ph 15:00 Follow up: IV Status: Completed infusion; IV Intake: 1000ml ph 14:45 Drug: morphine 4 mg Route: IVP; Site: left antecubital; ph 15:00 Follow up: Response: No adverse reaction; Pain is decreased; RASS: Drowsy (-1) ph 15:40 Drug: morphine 2 mg Route: IVP; Site: left antecubital; ph 16:00 Follow up: Response: No adverse reaction; Pain is unchanged, physician notified ph 16:12 CANCELLED (Duplicate Order): morphine 2 mg IVP once; (PAIN>8) RASS on ADMN: Combtv4, ph Very Agttd3, Agttd2, Rstlss1, AlertClm0, Drwsy-1, LtSdtn-2, ModSdtn-3, DpSdtn-4, UnArsble-5 x2 16:13 Not Given (Patient Refused): Flomax (tamsulosin) 0.4 mg PO once ph 16:13 Drug: Phenergan (promethazine) 12.5 mg Route: IVP; Site: left antecubital; ph 16:50 Follow up: Response: No adverse reaction; Nausea unchanged ph 16:13 Drug: Dilaudid (HYDROmorphone) 1 mg {Note: mixed into fluid bolus.} Route: IVP; Site: ph left antecubital; 16:30 Follow up: Response: No adverse reaction; Pain is decreased; RASS: Drowsy (-1) ph 16:13 Drug: NS 0.9% 500 ml Route: IV; Rate: bolus; Site: left antecubital; ph 16:50 Follow up: Response: No adverse reaction; IV Status: Completed infusion ph 16:14 Not Given (Patient Refused): Cipro (ciprofloxacin) 250 mg PO once ph Disposition Summary: 02/01/22 13:50 Discharge Ordered Location: Home christie Problem: new christie Symptoms: have improved christie Condition: Stable christie Diagnosis - Hydronephrosis with renal and ureteral calculous obstruction - 3 mm and 5 mm distal christie right ureter - UTI/ Urinary tract infection, site not specified christie Followup: christie - With: Private Physician - When: 2 - 3 days - Reason: Recheck today's complaints, Continuance of care, Re-evaluation by your physician Followup: christie - With: Ronal Hanna MD - When: 2 - 3 days - Reason: Recheck today's complaints, Re-evaluation by your physician Discharge Instructions: - Discharge Summary Sheet christie - Kidney Stones christie - Urinary Tract Infection, Adult christie - Kidney Stones, Gwam-gl-Dxct christie - Urinary Tract Infection, Adult, Rodi-ap-Giia christie - Hydronephrosis christie - Dietary Guidelines to Help Prevent Kidney Stones christie Forms: - Medication Reconciliation Form christie - Thank You Letter christie - Antibiotic Education christie - Prescription Opioid Use christie - Work release form ph Prescriptions: - Flomax 0.4 mg Oral capsule - take 1 capsule by ORAL route once daily 1/2 hour following the same meal each christie day; 20 capsule; Refills: 0, Product Selection Permitted - ondansetron 4 mg Oral tablet,disintegrating - place 1 tablet by TRANSLINGUAL route every 8 hours for 5 days; 20 tablet; christie Refills: 0, Product Selection Permitted - Cipro 250 mg Oral Tablet - take 1 tablet by ORAL route every 12 hours; 20 tablet; Refills: 0, Product christie Selection Permitted - Tylenol-Codeine #3 300 mg-30 mg Oral - take 2 tablet by ORAL route every 6 hours; 20 tablet; Refills: 0, Product christie Selection Permitted - ketorolac 10 mg Oral tablet - take 1 tablet by ORAL route every 6 hours not to exceed 40 mg in 24hrs; 12 christie tablet; Refills: 0, Product Selection Permitted Signatures: Dispatcher [employer] EDMS Leon Hunt MD MD cha Hall, Patricia, RN RN ph Girish, Sania, RN RN 1 Ryan Valle, RN RN ll1 Corrections: (The following items were deleted from the chart) 11:24 11:24 PMHx: None; ll1 ll1 12:28 11:59 URINE --ANCILLARY+UC.LAB.BRZ ordered. EDMS EDMS 16:12 16:12 morphine 2 mg IVP once; (PAIN>8) RASS on ADMN: Combtv4, Very Agttd3, Agttd2, ph Rstlss1, AlertClm0, Drwsy-1, LtSdtn-2, ModSdtn-3, DpSdtn-4, UnArsble-5 x2 ordered. ph
[2022-02-01] MEDS ORDERED: MORPHINE 2 MG/ML SYR ONE (15:49)
[2022-02-01] MEDS ORDERED: PROMETHAZINE INJ 25 MG/ML AMP ONE (16:04)
[2022-02-01] MEDS ORDERED: HYDROMORPHONE HCL 1 MG/ML INJ ONE (16:05)
[2022-02-01] MEDS ORDERED: NA CHLORIDE 0.9% 250 ML ONE (16:05)
[2022-02-01 17:09] VITALS: TEMP 98.2
[2022-02-01 17:13] VITALS: O2SAT 100
[2022-02-01 17:15] VITALS: BP 119/83
== END 2022-02-01 17:04 | disposition home or self-care (01) ==
LOC: ER 11:06
DX: N13.2 Hydronephrosis with renal and ureteral calculous obstruction (principal); N39.0 Urinary tract infection, site not specified; Z87.442 Personal history of urinary calculi
CPT/HCPCS: 85025; 36415; 81003; 83690; 80053; 76377; 74176; 99284; J2550; J2270; J1170; J7050; J7030 ×2; J2405 ×2

== ENCOUNTER 2022-06-04 17:21 | Emergency (ER) | payer BC ==
--- OUTSIDE RECORDS SUMMARY | 2022-06-04 17:24 | XMS REPORT | Continuity of Care Document ---
:2000 Author Organization [facility] t Address [address] [place] [address] [address]. Patel [address] [place] [address] Care Team Providers Name Role Phone PCP, PATIENT DOES NOT HAVE A Primary Care Physician Noa Martinez RN Attending Clinician Unavailable BERTIN WILSON Attending Clinician Unavailable Bertin Dennison Attending Clinician Jenifer Daly Attending Clinician JENIFER POZO Attending Clinician Unavailable Payers Payer Name Policy [...] y of d type d type 00:00: [place] 00 Medical Branch Cough Cough Disease Active Univers 2-16 ity of 00:00: [place] 00 Medical Branch Allergies, Adverse Reactions, Alerts Allergy Allergy Status Severity Reaction(s) Onset Inactive Treating Comm ents Source Name Type Date Date Clinician NO KNOWN Drug Active Univers ALLERGIE Class ity of S [facility] Social History Social Habit Start Date Stop Date Quantity Comments Source Exposure to 2022-03-19 2022-03-29 Not sure [facility] SARS-CoV-2 00:00:00 12:19:00 [facility] (event) Branch Alcohol intake 2022-03-29 2022-03-29 Lifetime University of 00:00:00 00:00:00 non-drinker [facility] (finding) [place] Tobacco use and 2021-07-18 2021-07-18 Never used Universit y of exposure 00:00:00 00:00:00 [facility] Sex Assigned At [birth year] Universit y of 00:00:00 00:00:00 [facility] Smoking Status Start Date Stop Date Source Never smoker [facility] Medications Ordered Filled Start Stop Current Ordering Indication Dosage Frequency Signature Comments Components Source Medication Medication Date Date Medication? Clinician (SIG) Name Name Cetirizine 2021- No [id number] 10mg Take 1 Univers 10 mg 4-11 07-11 capsule by ity of capsule 00:00: 04:59 mouth [place] 00 :00 daily for Medical 90 days. [place] Cetirizine 2021- No [id number] 10mg Take 1 Univers 10 mg 4-11 07-11 capsule by ity of capsule 00:00: 04:59 mouth [place] 00 :00 daily for Medical 90 days. [place] Cetirizine 2021- No [id number] 10mg Take 1 Univers 10 mg 4-11 07-11 capsule by ity of capsule 00:00: 04:59 mouth [place] 00 :00 daily for Medical 90 days. [facility] Yes 1 PATCH TO Unive rs 120-30 2-22 SKIN ity of mcg/24 hr 00:00: [place]SD[place]MA [place] [facility] 00 L WEEKLY Medical 84 DAYS [facility] Yes 1 PATCH TO Unive rs 120-30 2-22 SKIN ity of mcg/24 hr 00:00: [place] [facility] 00 L WEEKLY Medical 84 DAYS [facility] Yes 1 PATCH TO Unive rs 120-30 2-22 SKIN ity of mcg/24 hr 00:00: [place] [facility] 00 L WEEKLY Medical 84 DAYS [place] cetirizine 2021- No [id number] 10mg Take 1 Univers (ZYRTEC) 10 2-16 03-19 tablet by it y of mg tablet 00:00: 04:59 mouth [place] 00 :00 daily for Medical 30 days. [place] cetirizine 2021- No [id number] 10mg Take 1 Univers (ZYRTEC) 10 2-16 -19 tablet by it y of mg tablet 00:00: 04:59 mouth [place] 00 :00 daily for Medical 30 days. Branch ondansetron 2021- No [id number] 4mg Take 1 Univers 4 mg 2-15 -21 tablet by ity of disintegrat 00:00[place] 05:59 [place] :00 every 8 Medica l (eight) Branch hours as needed for Nausea and Vomiting (N/V) for up to 5 days. ondansetron 2021- No [id number] 4mg Take 1 Univers 4 mg 2-15 - tablet by ity of disintegrat 00:00[place] 05:59 [place] tablet 00 :00 every 8 Medica l (eight) Branch hours as needed for Nausea and Vomiting (N/V) for up to 5 days. [facility] Univers 150-35 1-28 PATCH TO ity of mcg/24 hr 00:00: SKIN [place] patch 00 TRANSDERMA Medical L WEEKLY Branch FOR 84 DAYS [facility] Yes APPLY 1 Univers 150-35 1-28 PATCH [...] Time Observation Value Comments Source Systolic blood 2022-03-29 17:19:00 112 mm[Hg] Univer sity of pressure [facility] Diastolic blood 2022-03-29 17:19:00 75 mm[Hg] Unive rsity [facility] Heart rate 2022-03-29 17:19:00 96 /min Universi ty of [place] [facility] [place] Body temperature 2022-03-29 17:19:00 36.78 Jessika [facility] ersity of [facility] Respiratory rate 2022-03-29 17:19:00 17 /min Univ ersity of [facility] Body height 2022-03-29 17:19:00 162.6 cm Universi ty of [place] [facility] [place] Body weight 2022-03-29 17:19:00 80.06 kg Universi ty of [place] [facility] BMI 2022-03-29 17:19:00 30.30 kg/m2 Universi ty of [facility] Branch Oxygen saturation in 2022-03-29 17:19:00 98 /min University of Arterial blood by [place] [facility] Pulse oximetry Branch Systolic blood 2021-12-10 17:21:00 106 mm[Hg] Univer sity of pressure [facility] Diastolic blood 2021-12-10 17:21:00 64 mm[Hg] Unive rsity of pressure [facility] Heart rate 2021-12-10 17:21:00 81 /min Universi ty [facility] [place] [facility] [place] Body temperature 2021-12-10 17:21:00 36.61 Jessika [facility] ersity of [facility] Body height 2021-12-10 17:21:00 162.6 cm Universi ty [facility] [place] [facility] Body weight 2021-12-10 17:21:00 76.204 kg Universi ty of [place] [facility] BMI 2021-12-10 17:21:00 28.84 kg/m2 Universi ty [facility] [place] [facility] [place] Oxygen saturation in 2021-12-10 17:21:00 97 /min University of Arterial blood by [facility] Pulse oximetry Branch Procedures Procedure Date / Time Performed Performing Clinician Sourc e POCT MOLECULAR STREP 2022-03-29 17:26:00 Bertin Wilson [facility] of [facility] Encounters Start End Encounter Admission Attending Care Care Encounter Source Date/Time Date/Time Type Type Clinicians Facility Department ID 2022-03-30 2022-03-30 Telephone Carolyn JAY [id number] [facility] 00:00:00 00:00:00 Noa HAYNES [id number] [facility] [id number] [place] as [id number] [address] 2022-03-29 2022-03-29 Outpatient R KATIE [facility] [id number] Univers 12:20:00 12:45:02 BERTIN ity [facility] 2022-03-29 2022-03-29 [facility] [id number] Univers 12:20:00 12:45:02 Care Bertin HEALTH [id number] it y of [place] [id number] [place] as JIMY?BLEA [id number] Ct christin KIM[address] [place] MEDICAL OFFICE BUILDING 2022-03-29 2022-03-29 Outpatient R [facility] [id number] Univers 12:20:00 12:20:00 [id number] [facility] 2022-02-02 2022-02-02 [facility] [id number] Univers 00:00:00 00:00:00 Jenifer HEALTH [id number] it y of [place] [id number] Allen as JIMY?BLEA [id number] [address] OFFICE [facility] 2021-12-12 2021-12-12 Telephone Alice [facility] [id number] Univers 00:00:00 00:00:00 Jenifer HEALTH [id number] it y of [place] [id number] Allen as JIMY?BLEA [id number] Ct christin MOYER [address] [place] [address] MEDICAL OFFICE [facility] 2021-12-10 2021-12-10 Outpatient R ALICE [facility] [id number] Univers 11:00:00 11:57:28 JENIFER [facility] 2021-12-10 2021-12-10 [facility] [id number] Univers 11:00:00 11:57:28 Visit Jenifer HEALTH [id number] it y of [place] [id number] [place] as JIMY?BLEA [id number] [address] MEDICAL OFFICE BUILDING Results Test Description Test Time Test Comments Results Result Comments Source POCT MOLECULAR STREP 2022-03-29 17:34:34 Test Item Value Reference Range Interpretation Comme nts POCT Molecular Strep (test code = 94497-2) Negative Negative Lab Interpretation (test code = 11419-9) Normal [facility]
[2022-06-04] MEDS ORDERED: KETOROLAC 30 MG/ML INJ ONE (18:00)
[2022-06-04] MEDS ORDERED: NA CHLORIDE 0.9% 1,000 ML ONE (18:00)
[2022-06-04] MEDS ORDERED: ONDANSETRON 4 MG/2 ML VIAL ONE (18:00)
[2022-06-04 18:13] LABS: Urine Blood 3+ (Negative); Urine Glucose Negative (Negative); Urine Protein Negative (Negative); Urine Specific Gravity >=1.030 (1.005-1.030)
[2022-06-04 18:28] LABS: Absolute Lymphocytes (CBC) 4.5 K/uL (0.7-4.9); Hematocrit 43.6 % (36.0-45.0); MCV 83.2 fL (80-100); MPV 7.6 fL (7.6-11.3); RBC Red Blood Cell Count 5.24 M/uL (3.86-4.86)
[2022-06-04 18:30] LABS: Urine Bacteria <20 /HPF (<20)
[2022-06-04 18:31] LABS: Urine Mucus Slight /HPF (None Seen)
[2022-06-04 18:39] LABS: Albumin 3.6 g/dL (3.4-5.0); Bilirubin Total 0.2 mg/dL (0.2-1.0); Potassium 4.1 mmol/L (3.5-5.1)
--- NOTE | 2022-06-04 19:12 | RAD REPORT ---
EXAM DESCRIPTION: CT - Abdomen Pelvis Wo Contrast - 06/04/2022 7:04 pm CLINICAL HISTORY: Abdominal pain. Right flank pain COMPARISON: Stone Protocol dated 02/01/2022 TECHNIQUE: CT imaging of the abdomen and pelvis was performed without contrast. Solid organ, bowel a nd vascular assessment is limited due to lack of IV and oral contrast. All CT scans are performed using dose optimization technique as appropriate and may include automated exposure control or mA/KV adjustment according to patient size. FINDINGS: The lower lung patel are clear. The liver, spleen, pancreas, adrenal glands are within normal limits for a limited non-contrast exami nation.Punctate calculus is present distal right ureter measuring 2 mm. Mild right hydronephrosis and hydroureter is seen. Additional punctate calculi seen upper left kidney. No bowel obstruction, free air, free fluid or abscess. The appendix is normal. The osseous structures are within normal limits. IMPRESSION: 2 mm stone distal right ureter resulting mild right hydronephrosis. A limited non-contrast examination was performed as detailed.
--- NOTE | 2022-06-04 19:25 | EDPHYS ---
Physician Documentation [facility] Name: Yahaira So Age: 21 yrs Sex: Female : 2000 Arrival Date: 06/04/2022 Time: 17:25 Bed 15 Private MD: ED Physician Erick Alejandro HPI: 06/04 19:24 This 21 yrs old Female presents to ER via Ambulatory with complaints of Possible Kidney ms3 Stone. 19:24 The patient complains of pain in the right low back. The pain does not radiate. Onset: ms3 The symptoms/episode began/occurred 2 hour(s) ago. Modifying factors: The symptoms are alleviated by nothing. the symptoms are aggravated by nothing. Associated signs and symptoms: Pertinent positives: nausea, vomiting. Severity of pain: At its worst the pain was severe a 10 / 10 in the emergency department the pain is unchanged. 21 yo fm with pmh of kidney stones presents for R flank pain that is rated a 10/10 located in her right flank and described as sharp. Patient states the discomfort began 2 hours travel pta. Patient denies alleviating or inciting factors.. 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 - Social history:: Smoking status: Patient denies any tobacco usage or history of. ROS: 19:24 Constitutional: Negative for fever, and chills. Neck: Negative for injury, pain, and ms3 swelling, Cardiovascular: Negative for chest pain, and palpitations. Respiratory: Negative for shortness of breath, cough, wheezing, and pleuritic chest pain. 19:24 Skin: Negative for injury, rash, and discoloration, Hematologic/Lymphatic: Negative for swollen nodes, abnormal bleeding, and unusual bruising. 19:24 Back: Positive for flank pain, on the right. 19:24 All other systems are negative. Exam: 19:24 Constitutional: This is a well developed, well nourished patient who is awake, alert, ms3 and in no acute distress. Head/Face: Normocephalic, atraumatic. Neck: Trachea midline, no cervical lymphadenopathy. Supple, full range of motion without nuchal rigidity, or vertebral point tenderness. No Meningismus. Chest/axilla: Normal chest wall appearance and motion. Nontender with no deformity. Cardiovascular: Regular rate and rhythm with a normal S1 and S2. No gallops, murmurs, or rubs. Normal PMI, no JVD. No pulse deficits. Respiratory: Lungs have equal breath sounds bilaterally, clear to auscultation and percussion. No rales, rhonchi or wheezes noted. No increased work of breathing, no retractions or nasal flaring. Abdomen/GI: Soft, non-tender, with normal bowel sounds. No distension or tympany. No guarding or rebound. No evidence of tenderness throughout. Skin: Warm, dry with normal turgor. Normal color with no rashes, no lesions, and no evidence of cellulitis. Psych: Awake, alert, with orientation to person, place and time. Behavior, mood, and affect are within normal limits. 19:24 Back: CVA tenderness, that is moderate, is noted on the right. Vital Signs: 17:47 BP 130 / 102; Pulse 69; Resp 18; Temp 98.1; Pulse Ox 100% on R/A; Weight 74.84 kg; em6 Height 5 ft. 4 in. (162.56 cm); Pain 10/10; 18:15 BP 116 / 74; Pulse 75; Resp 18; Pulse Ox 100% on R/A; em6 17:47 Body Mass Index 28.32 (74.84 kg, 162.56 cm) em6 MDM: 17:43 Patient medically screened. ms3 19:24 Differential diagnosis: nephrolithiasis, pyelonephritis, UTI. Data reviewed: vital ms3 signs, nurses notes, lab test result(s), radiologic studies, and as a result, I will discharge patient. Counseling: I had a detailed discussion with the patient and/or guardian regarding: the historical points, exam findings, and any diagnostic results supporting the discharge/admit diagnosis, lab results, radiology results, the need for outpatient follow up, to return to the emergency department if symptoms worsen or persist or if there are any questions or concerns that arise at home. ED course: On re-evaluation patient is improved, nad, non-toxic, ambulatory in ED, speaking full sentences.. 06/04 17:42 Order name: CBC with Diff; Complete Time: 18:52 ms3 06/04 17:42 Order name: CMP; Complete Time: 18:52 ms3 06/04 17:42 Order name: Lipase; Complete Time: 18:52 ms3 06/04 17:42 Order name: Urine Microscopic Only; Complete Time: 18:52 ms3 06/04 18:14 Order name: Urine Dipstick-Ancillary; Complete Time: 18:52 EDMS 06/04 17:42 Order name: CT Abd/Pelvis - Without Contrast; Complete Time: 19:20 ms3 06/04 17:43 Order name: IV Saline Lock; Complete Time: 18:45 ms3 06/04 17:43 Order name: Labs collected and sent; Complete Time: 18:20 ms3 06/04 17:43 Order name: Urine Dipstick-Ancillary (obtain specimen); Complete Time: 18:15 ms3 06/04 17:43 Order name: Urine Test (obtain specimen); Complete Time: 18:15 ms3 Administered Medications: 18:00 Drug: NS 0.9% 1000 ml Route: IV; Rate: 1 bolus; Site: right antecubital; em6 18:00 Drug: Zofran (Ondansetron) 4 mg Route: IVP; Site: left antecubital; em6 19:17 Follow up: Response: No adverse reaction em6 18:00 Drug: Ketorolac 10 mg Route: IVP; Site: left antecubital; em6 18:45 Follow up: Response: No adverse reaction em6 Disposition Summary: 06/04/22 19:24 Discharge Ordered Location: Home ms3 Condition: Stable ms3 Diagnosis - Kidney stone ms3 - Right flank pain ms3 - Unspecified hydronephrosis ms3 Discharge Instructions: - Discharge Summary Sheet ms3 - Kidney Stones ms3 Forms: - Medication Reconciliation Form ms3 - Thank You Letter ms3 - Antibiotic Education ms3 - Prescription Opioid Use ms3 - Work release form ja4 Prescriptions: - Flomax 0.4 mg Oral capsule - take 1 capsule by ORAL route once daily 1/2 hour following the same meal each ms3 day; 14 capsule; Refills: 0, Product Selection Permitted - Tylenol-Codeine #3 300 mg-30 mg Oral - take 1 tablet by ORAL route every 4-6 hours; 18 tablet; Refills: 0, Product ms3 Selection Permitted Signatures: Dispatcher [employer] EDErick Weinberg DO DO ms3 Kaylee Francis, RN RN em6
--- NOTE | 2022-06-04 19:25 | ER ---
Nurse's Notes [facility] Name: Yahaira So Age: 21 yrs Sex: Female : 2000 Arrival Date: 06/04/2022 Time: 17:25 Bed 15 Private MD: Diagnosis: Kidney stone;Right flank pain;Unspecified hydronephrosis Presentation: 06/04 17:47 Chief complaint: Chief complaint: Patient states: my right side hurts it starts in the em6 front and radiates to the back. I had kidney stones before and I believe the pain is from a kidney stone. pain is a 10 out of 10. 17:47 Method Of Arrival: Ambulatory em6 17:47 Coronavirus screen: Vaccine status: Patient reports receiving the 2nd dose of the covid em6 vaccine. Ebola Screen: Patient negative for fever greater than or equal to 101.5 degrees Fahrenheit, and additional compatible Ebola Virus Disease symptoms. Initial Sepsis Screen: Does the patient meet any 2 criteria? No. Patient's initial sepsis screen is negative. Does the patient have a suspected source of infection? No. Patient's initial sepsis screen is negative. Risk Assessment: Do you want to hurt yourself or someone else? Patient reports no desire to harm self or others. Onset of symptoms was June 04, 2022. 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 - Social history:: Smoking status: Patient denies any tobacco usage or history of. Screenin:55 Abuse screen: Denies threats or abuse. Nutritional screening: No deficits noted. em6 Tuberculosis screening: No symptoms or risk factors identified. Fall Risk No fall in past 12 months (0 pts). No secondary diagnosis (0 pts). IV access (20 points). Ambulatory Aid- None/Bed Rest/Nurse Assist (0 pts). Gait- Normal/Bed Rest/Wheelchair (0 pts) Mental Status- Oriented to own ability (0 pts). Total Oneill Fall Scale indicates No Risk (0-24 pts). Assessment: 17:55 General: Appears in no apparent distress. uncomfortable, Behavior is cooperative, em6 crying. Pain: Complains of pain in posterior aspect of right lateral abdomen and anterior aspect of right lateral abdomen Pain radiates to posterior aspect of right lateral abdomen Pain currently is 10 out of 10 on a pain scale. Quality of pain is described as radiating, sharp, Pain began 3 hours ago. Is continuous. Neuro: Link Agitation-Sedation Scale (RASS): 0 - Alert and Calm Level of Consciousness is awake, alert, obeys commands, Oriented to person, place, time. Cardiovascular: Heart tones present Capillary refill < 3 seconds Patient's skin is warm and dry. Chest pain is denied. Respiratory: Airway is patent Respiratory effort is even, unlabored, Respiratory pattern is regular, symmetrical, Breath sounds are clear bilaterally. GI: Abdomen is non-distended, Bowel sounds present X 4 quads. Abd is soft and non tender X 4 quads. GI: : Reports urgency, urinary frequency, Denies vaginal bleeding. EENT: No signs and/or symptoms were reported regarding the EENT system. Derm: No signs and/or symptoms reported regarding the dermatologic system. Musculoskeletal: No signs and/or symptoms reported regarding the musculoskeletal system. Circulation, motion, and sensation intact. 18:55 Reassessment: Patient appears in no apparent distress at this time. Patient and/or em6 family updated on plan of care and expected duration. Pain level reassessed. patient states pain at a 5. Vital Signs: 17:47 BP 130 / 102; Pulse 69; Resp 18; Temp 98.1; Pulse Ox 100% on R/A; Weight 74.84 kg; em6 Height 5 ft. 4 in. (162.56 cm); Pain 10/10; 18:15 BP 116 / 74; Pulse 75; Resp 18; Pulse Ox 100% on R/A; em6 17:47 Body Mass Index 28.32 (74.84 kg, 162.56 cm) em6 ED Course: 17:25 Patient arrived in ED. ja2 17:25 Erick Alejandro DO is Attending Physician. ms3 17:44 Billie Cox RN is Primary Nurse. jl7 17:55 Arm band placed on left wrist. em6 17:55 Patient has correct armband on for positive identification. Bed in low position. Call em6 light in reach. Side rails up X 1. Pulse ox on. NIBP on. Warm blanket given. 17:55 Inserted saline lock: 22 gauge in left antecubital area, using aseptic technique. Blood em6 collected. 18:27 Triage completed. em6 19:06 CT Abd/Pelvis - Without Contrast In Process Unspecified. EDMS 19:17 Attending Physician role handed off by Erick Alejandro DO sp3 19:17 Meghana Villareal MD is Attending Physician. sp3 19:28 Attending Physician role handed off by Meghana Villareal MD ms3 19:28 Erick Alejandro DO is Attending Physician. ms3 Administered Medications: 18:00 Drug: NS 0.9% 1000 ml Route: IV; Rate: 1 bolus; Site: right antecubital; em6 18:00 Drug: Zofran (Ondansetron) 4 mg Route: IVP; Site: left antecubital; em6 19:17 Follow up: Response: No adverse reaction em6 18:00 Drug: Ketorolac 10 mg Route: IVP; Site: left antecubital; em6 18:45 Follow up: Response: No adverse reaction em6 Medication: 17:55 VIS not applicable for this client. em6 Outcome: 19:24 Discharge ordered by . ms3 19:55 Discharged to home ambulatory. ja4 19:55 Condition: stable 19:55 Discharge instructions given to patient, Instructed on discharge instructions, follow up and referral plans. Demonstrated understanding of instructions, Prescriptions given X 2. 19:55 Patient left the ED. ja4 Signatures: Dispatcher [employer] EDMS Billie Cox, RN RN jl7 Erick Alejandro DO DO ms3 Meghana Villareal MD MD sp3 Georgina Bailey2 Kaylee Francis RN RN em6 Kirk Cortés RN RN ja4 Corrections: (The following items were deleted from the chart) 18:27 17:47 Chief complaint: em6 em6 19:33 17:55 Inserted saline lock: 22 gauge in left antecubital area, using aseptic technique. em6 Blood collected. em6
[2022-06-04 23:08] VITALS: TEMP 98.1; O2SAT 100
[2022-06-04 23:10] VITALS: BP 116/74
== END 2022-06-04 19:55 | disposition home or self-care (01) ==
LOC: ER 17:21
DX: N13.2 Hydronephrosis with renal and ureteral calculous obstruction (principal); R10.9 Unspecified abdominal pain; Z87.442 Personal history of urinary calculi
CPT/HCPCS: 85025; 36415; 83690; 80053; 74176; 96375; 96374; 99284; J7030; J2405; 81003; 81015

== ENCOUNTER 2023-03-14 03:32 | Emergency (ER) | payer BC ==
--- OUTSIDE RECORDS SUMMARY | 2023-03-14 03:35 | XMS REPORT | Continuity of Care Document ---
:2000 Author Organization [facility] t Address [address] [facility]. [address] [place] [address] Care Team Providers Name Role Phone Farzana TRACK LAYING SUPERVISOR, Nilda Primary Care Physician NILDA KUMAR Attending Clinician Unavailable NILDA KUMRA Attending Clinician Unavailable Carolyn CALHOUN, Noa Attending Clinician Unavailable LULA WILSON Attending Clinician Unavailable Katie BONBON DIPPER, Lula Attending Clinician Alice BONBON DIPPER, Kelli Attending Clinician KELLI POZO Attending Clinician Unavailable WILY FRANK Attending Clinician Unavailable Nasra Herring RN Attending Clinician Unavailable FELIPE BURK Attending Clinician Unavailable Provider, K[facility] Attending Clinician Unavailable Omagpedro BONBON DIPPER, Felipe Attending Clinician Doctor Unassigned, [place] Attending Clinician Unavailable Ebbethany BONBON DIPPER, Wiyl Attending Clinician Payers Payer Name Policy Type Policy Number Effective Date Expiration Date S esme [facility] - [id number] 2020 00:00:00 OUT OF STATE Problems Condition Condition Condition Status Onset Resolution [...] y of d type d type 00:00: [place] [facility] Cough Cough Disease Active Univers 2-16 ity of 00:00: [address] Allergies, Adverse Reactions, Alerts This patient has no known allergies or adverse reactions. Social History Social Habit Start Date Stop Date Quantity Comments Source Alcohol intake 2022-06-16 2022-06-16 Lifetime University of 00:00:00 00:00:00 non-drinker Formerly [facility] (finding) [place] Exposure to 2022-06-05 2022-06-15 Not sure [facility] SARS-CoV-2 00:00:00 12:11:00 Formerly [facility] (event) [place] Tobacco use and 2021-07-18 2021-07-18 Smokeless tobacco Un iversity of exposure 00:00:00 00:00:00 non-user [facility] Sex Assigned At [birth year] Universit y of 00:00:00 00:00:00 [facility] Smoking Status Start Date Stop Date Source Never smoked tobacco [facility] Medications Ordered Filled Start Stop Current Ordering Indication Dosage Frequency Signature Comments Components Source Medication Medication Date Date Medication? Clinician (SIG) Name Name [place] Yes 1 PATCH TO Unive rs 120-30 2-22 SKIN ity of mcg/24 hr 00:00[place] [facility] 00 L WEEKLY Medical 84 DAYS [facility] Yes 1 PATCH TO Unive rs 120-30 2-22 SKIN ity of mcg/24 hr 00:00[place] [facility] 00 L WEEKLY Medical 84 DAYS Branch [facility] Yes APPLY 1 Univers 150-35 1-28 PATCH TO ity of mcg/24 hr 00:00: SKIN [place] patch 00 TRANSDERMA Medical L WEEKLY Branch FOR 84 DAYS [facility] Yes APPLY 1 Univers 150-35 1-28 PATCH TO ity of mcg/24 hr 00:00: SKIN [place] patch 00 TRANSDERMA Medical WEEKLY [place] FOR 84 DAYS Immunizations Ordered Immunization Filled Immunization Date Status Commen ts Source Name Name Meningococcal B, OMV 2022-06-16 Completed Univ ersity of 00:00:00 [facility] Meningococcal B, OMV 2022-06-16 Completed Univ ersity of 00:00:00 [facility] SARS-COV-2 COVID-19 2021-06-04 Completed Unive rsity of [place]ER[place] VACCINE 00:00:00 [facility] SARS-COV-2 COVID-19 2021-06-04 Completed Unive rsity of [place]ER[place] VACCINE 00:00:00 [facility] SARS-COV-2 COVID-19 2020-12-25 Completed Unive rsity of [place]ER[place] VACCINE 00:00:00 [facility] SARS-COV-2 COVID-19 2020-12-25 Completed Unive rsity of MODERNA VACCINE 00:00:00 [facility] Vital Signs Vital Name Observation Time Observation Value Comments Source Systolic blood 2022-06-16 13:22:00 116 mm[Hg] Univer sity of pressure [facility] Diastolic blood 2022-06-16 13:22:00 78 mm[Hg] Unive rsity of pressure [facility] Heart rate 2022-06-16 13:22:00 96 /min [facility] Body temperature 2022-06-16 13:22:00 36.28 Jessika [facility] rate 2022-06-16 13:22:00 18 /min [facility] Body height 2022-06-16 13:22:00 162.6 cm [facility] Body weight 2022-06-16 13:22:00 82.509 kg [facility] BMI 2022-06-16 13:22:00 31.22 kg/m2 [facility] Oxygen saturation in 2022-06-16 13:22:00 97 /min [facility] blood by [facility] Pulse oximetry Branch Procedures Procedure Date / Time Performing Clinician Source Performed MENINGOCOCCAL B VACCINE, 2022-06-16 13:54:57 Nilda Kumar [facility] OMV, 2 DOSE, IM Medical Branch Encounters Start End Encounter Admission Attending Care Care Encounter Source Date/Time Date/Time Type Type Clinicians Facility Department ID 2022-06-16 2022-06-16 Outpatient R NILDA KUMAR [facility] [id number] Univers 08:00:00 08:59:17 NILDA KUMAR ity [facility] 2022-06-16 2022-06-16 [facility] [id number] Univers 08:00:00 08:59:17 Visit Nilda MONK [id number] ity [id number] [id number] [facility] [facility] 2022-03-30 2022-03-30 Telephone CarolynJAY [id number] Univers 00:00:00 00:00:00 Noa IVY [id number] it y of [facility] [id number] [place] as [id number] [address] 2022-03-29 2022-03-29 Outpatient KATIE [facility] [id number] Univers 12:20:00 12:45:02 LULA ity [facility] 2022-03-29 2022-03-29 [facility] [id number] Univers 12:20:00 12:45:02 [facility] [id number] [facility] y [facility] [id number] [place] NEAL?BLEA [id number] [facility] [address] [place] MEDICAL OFFICE BUILDING 2022-02-02 2022-02-02 Telephone Alice [facility] [id number] Univers 00:00:00 00:00:00 Kelli HEALTH [id number] it y of [place] [id number] [place] as NEAL?BLEA [id number] Nh dic[address] MEDICAL OFFICE BUILDING 2021-12-12 2021-12-12 [facility]phone [facility] [id number] Univers 00:00:00 00:00:00 Kelli HEALTH [id number] it y of [facility] [id number] [place] as NEAL?BLEA [id number] [address] MEDICAL OFFICE BUILDING 2021-12-102021-12-10 Outpatient R ALICE [facility] [id number] Univers 11:00:00 11:57:28 KELLI howard [facility] 2021-12-10 2021-12-10 Office Alice [facility] [id number] Univers 11:00:00 11:57:28 Visit Kelli [facility] [id number] it y of [place] [id number] [place] as NEAL?BLEA [id number] [address] OFFICE [facility] 2021-12-10 2021-12-10 Outpatient R ALICE [facility] [id number] Univers 11:00:00 11:57:28 KELLI howard [facility] 2021-12-10 2021-12-10 Letter [facility] [id number] Univers 00:00:00 00:00:00 (Out) Kelli [facility] [id number] it y of [place] [id number] [place] as NEAL?BLEA [id number] [address] OFFICE [facility] 2021-12-09 2021-12-09 Outpatient R MONIKA [facility] [id number] Univers 15:20:00 15:17:12 WILY marie [facility] 2021-09-02 2021-09-02 Letter JAY Herring [id number] Univers 00:00:00 00:00:00 (Out) Nasra HAYNES [id number] it y of [facility] [id number] [place] as [id number] [address] 2021-09-01 2021-09-01 Outpatient R WM [facility] [id number] Univers 13:40:00 15:02:53 [facility] 2021-09-01 2021-09-01 Urgent Provider, Kael [facility] [id number] Univers 13:30:51 13:50:51 [facility] [id number] ity of [facility] [id number] [place] NEAL?BLEA [id number] [address] MEDICAL OFFICE BUILDING 2021-09-01 2021-09-01 Orders Doctor JAY [id number] Univers 00:00:00 00:00:00 Only Unassigned, IVY [id number] ity of [facility] [id number] [place] as [id number] [address] 2021-07-18 2021-07-18 Urgent Westonismaeltila Bennyzahraa [facility] [id number] Univers 12:26:32 12:44:54 [facility] [id number] ity of [place] [id number] [place] as Neal?Blea [id number] [address] Medical Office [facility] 2021-07-18 2021-07-18 Outpatient Gautam WILSON [facility] [id number] Univers 12:20:00 12:20:00 [facility] Results This patient has no known results.
[2023-03-14 04:27] LABS: Specific Gravity 1.027 (1.005-1.030)
--- NOTE | 2023-03-14 04:37 | EDPHYS ---
Physician Documentation [facility] Name: Yahaira So Age: 22 yrs Sex: Female : 2000 Arrival Date: 03/14/2023 Time: 03:32 Bed 7 Private MD: ED Physician Glen Goldberg HPI: 03/14 03:44 This 22 yrs old Female presents to ER via Unassigned with complaints of bs3 Breathing Difficulty, Cough, Congestion, Numbness Of Arm. 03:44 22-year-old female presents with cough and nasal congestion intermittently for the past bs3 2 weeks however she woke up feeling slightly short of breath and she became anxious and then felt tingling in her right arm she did not have associated weakness she notes that she recently started using CBD for her anxiety and ADHD which seems to be helping a little bit she denies any history of estrogen use and a history of PE, DVT, family history of sudden cardiac , leg swelling, recent travel or immobilization any recent surgeries or coughing up blood. Historical: - Allergies: 03:46 No Known Allergies; kd3 - PMHx: 03:46 Kidney stone; Anxiety; Hypercholesterolemia; kd3 - Immunization history:: Adult Immunizations up to date. - Social history:: Smoking status: CBD cigarettes . ROS: 03:44 Constitutional: Negative for fever, chills bs3 03:44 All other systems are negative. Exam: 03:44 Constitutional: This is a well developed, well nourished patient who is awake, alert, bs3 and in no acute distress. Head/Face: Normocephalic, atraumatic. Eyes: Pupils equal round and reactive to light, extra-ocular motions intact. Lids and lashes normal. ENT: mmm, no posterior phyarngeal erythema Neck: Trachea midline, no thyromegaly, no neck stiffness Chest/axilla: Normal chest wall appearance and motion. Nontender with no deformity. No lesions are appreciated. Cardiovascular: Regular rate and rhythm with a normal S1 and S2. symmetric pulses in upper extremities Respiratory: Lungs have equal breath sounds bilaterally, clear to auscultation, no respiratory distress MS/ Extremity: Pulses equal, no cyanosis. Neurovascular intact. Full, normal range of motion. Neuro: Awake and alert, GCS 15, oriented to person, place, time, and situation. Cranial nerves II-XII grossly intact. Motor strength 5/5 in all extremities. Sensory grossly intact. Psych: Awake, alert, with orientation to person, place and time. Behavior, mood, and affect are within normal limits. 04:06 Normal sinus rhythm at 91 right bundle branch block no ST elevation or depression QTc bs3 3467 is interpreted by myself Vital Signs: 03:43 BP 126 / 85; Pulse 98; Resp 20; Temp 98.8(TE); Pulse Ox 99% on R/A; Weight 92.99 kg; kd3 Height 5 ft. 4 in. ; 03:45 BP 121 / 92; Pulse 93; Resp 19 S; Pulse Ox 99% on R/A; ll3 03:43 Body Mass Index 35.19 (92.99 kg, 162.56 cm) kd3 MDM: 03:34 Patient medically screened. bs3 03:44 Differential diagnosis: Anxiety Reaction Bronchitis Myocardial Infarction pneumonia, bs3 Pneumothorax I considered pulmonary embolism however she is PE RC negative, she does not have ripping or tearing pain she does not have weakness her pulses are symmetric I do not think she has an aortic dissection when we attempted to take an oral temperature she was unable to as she cannot breathe through her nose currently, I suspect this is viral syndrome which may have exacerbated her asthma when distracted her heart rate slowed into the low 70s, will rule out pneumothorax will get screening EKG and test. Data reviewed: vital signs, nurses notes. 04:29 ED course: xr neg for acute pathology as inter by myself, will dc home. return prec bs3 given. 03/14 03:44 Order name: Test, Urine bs3 03/14 03:44 Order name: Chest Single View XRAY bs3 03/14 03:44 Order name: EKG - Nurse/Tech; Complete Time: 03:58 bs3 03/14 04:28 Interpretation: Abnormal. bs3 Administered Medications: No medications were administered Disposition Summary: 03/14/23 04:36 Discharge Ordered Location: Home bs3 Problem: new bs3 Symptoms: have improved bs3 Condition: Stable bs3 Diagnosis - Acute upper respiratory infection, unspecified bs3 Followup: bs3 - With: Private Physician - When: 1 week - Reason: Re-evaluation by your physician Discharge Instructions: - Discharge Summary Sheet bs3 - Upper Respiratory Infection, Adult bs3 Forms: - Medication Reconciliation Form bs3 - Thank You Letter bs3 Prescriptions: - Tessalon Perles 100 mg Oral Capsule - take 1 capsule by ORAL route every 8 hours As needed; 15 capsule; Refills: 0, bs3 Product Selection Permitted Signatures: Dispatcher [employer] Sujata Cope RN RN kd3 Glen Goldberg MD MD bs3 Corrections: (The following items were deleted from the chart) 03:48 03:46 Allergies: No Known Allergies; kd3 kd3 03:48 03:46 Allergies: high cholesterol; kd3 kd3 04:28 04:27 Abnormal. bs3 bs3 04:28 04:27 Within normal limits. bs3 bs3
--- NOTE | 2023-03-14 04:37 | ER ---
Nurse's Notes [facility] Name: Yahaira So Age: 22 yrs Sex: Female : 2000 Arrival Date: 03/14/2023 Time: 03:32 Bed 7 Private MD: Diagnosis: Acute upper respiratory infection, unspecified Presentation: 03/14 03:43 Chief complaint: Patient states: I have had these weird episodes where i feel like i kd3 cannot breath and i feel like there are some pin and needles in my right arm. The feeling is still there now and it started around 0245. Lately I also have had some congestion and have been coughing yellow phlegm. Coronavirus screen: Vaccine status: Patient reports receiving the 2nd dose of the covid vaccine. Ebola Screen: No symptoms or risks identified at this time. Initial Sepsis Screen: Does the patient meet any 2 criteria? No. Patient's initial sepsis screen is negative. Does the patient have a suspected source of infection? No. Patient's initial sepsis screen is negative. Risk Assessment: Do you want to hurt yourself or someone else? Patient reports no desire to harm self or others. Onset of symptoms was March 14, 2023. 03:43 Method Of Arrival: Ambulatory kd3 03:43 Acuity: LISA 3 kd3 Triage Assessment: 03:46 General: Appears uncomfortable, Behavior is anxious. Pain: Denies pain. Respiratory: kd3 Reports shortness of breath at rest Onset: The symptoms/episode began/occurred this morning, the patient has moderate shortness of breath. Historical: - Allergies: 03:46 No Known Allergies; kd3 - PMHx: 03:46 Kidney stone; Anxiety; Hypercholesterolemia; kd3 - Immunization history:: Adult Immunizations up to date. - Social history:: Smoking status: CBD cigarettes . Screenin:01 Abuse screen: Denies threats or abuse. Denies injuries from another. Nutritional ha1 screening: No deficits noted. Tuberculosis screening: No symptoms or risk factors identified. 04:44 [facility] ED Fall Risk Assessment (Adult) History of falling in the last 3 months, ll3 including since admission No falls in past 3 months (0 pts) Confusion or Disorientation No (0 pts) Intoxicated or Sedated No (0 pts) Impaired Gait No (0 pts) Mobility Assist Device Used No (0 pt) Altered Elimination No (0 pt) Score/Fall Risk Level 0 - 2 = Low Risk Oriented to surroundings, Maintained a safe environment, Educated pt \T\ family on fall prevention, incl call for assistance when getting out of bed. Assessment: 03:34 General: Appears comfortable, Behavior is calm, cooperative. Pain: Complains of pain in ha1 chest pressure when coughing. Pain does not radiate. Neuro: Level of Consciousness is awake, alert, obeys commands, Oriented to person, place, time, situation. Cardiovascular: Capillary refill < 3 seconds Patient's skin is warm and dry. Rhythm is sinus rhythm. Respiratory: Reports cough that is productive, pain with cough Airway is patent Respiratory effort is even, unlabored, Respiratory pattern is regular, symmetrical, Breath sounds are clear bilaterally. GI: No signs and/or symptoms were reported involving the gastrointestinal system. : No signs and/or symptoms were reported regarding the genitourinary system. Musculoskeletal: Circulation, motion, and sensation intact. Range of motion: intact in all extremities. Vital Signs: 03:43 BP 126 / 85; Pulse 98; Resp 20; Temp 98.8(TE); Pulse Ox 99% on R/A; Weight 92.99 kg; kd3 Height 5 ft. 4 in. ; 03:45 BP 121 / 92; Pulse 93; Resp 19 S; Pulse Ox 99% on R/A; ll3 03:43 Body Mass Index 35.19 (92.99 kg, 162.56 cm) kd3 ED Course: 03:33 Patient arrived in ED. [id number] 03:34 Glen Goldberg MD is Attending Physician. bs3 03:34 Patient has correct armband on for positive identification. Bed in low position. Call ha1 light in reach. Side rails up X 1. 03:46 Triage completed. kd3 03:46 Arm band placed on right wrist. kd3 03:58 Cyndi Hall RN is Primary Nurse. ha1 04:09 Test, Urine Sent. ha1 04:28 Chest Single View XRAY In Process Unspecified. EDMS 04:44 No provider procedures requiring assistance completed. Patient did not have IV access ll3 during this emergency room visit. Administered Medications: No medications were administered Medication: 04:44 VIS not applicable for this client. ll3 Outcome: 04:36 Discharge ordered by . bs3 04:44 Discharged to home ambulatory, with significant other. ll3 04:44 Condition: stable 04:44 Discharge instructions given to patient, significant other, Instructed on discharge instructions, follow up and referral plans. medication usage, Demonstrated understanding of instructions, follow-up care, medications, Prescriptions given X 1. 04:46 Patient left the ED. ll3 Signatures: Dispatcher [employer] EDMS Marilee Alexander [email or web address] Nel Ferrera RN RN ll3 Sujata Galindo RN RN kd3 Cyndi Hall RN RN ha1 Glen Goldberg MD MD bs3 Corrections: (The following items were deleted from the chart) 03:48 03:46 Allergies: No Known Allergies; kd3 kd3 03:48 03:46 Allergies: high cholesterol; kd3 kd3 04:30 03:45 BP 121 / 92; Pulse 93bpm; Resp 19bpm; Spontaneous; Pulse Ox 94% RA; ha1 ll3
[2023-03-14 04:50] VITALS: TEMP 98.8; O2SAT 99
[2023-03-14 04:52] VITALS: BP 121/92
--- NOTE | 2023-03-15 10:51 | RAD REPORT ---
EXAM DESCRIPTION: RAD - Chest Single View - 4:26 am CLINICAL HISTORY: CONGESTION Chest pain. COMPARISON: No comparisons FINDINGS: Portable technique limits examination quality. Hazy opacity in the left lung base suspicious for developing pneumonia. The heart is normal in size. No displaced fractures. IMPRESSION: Left lung base infiltrate suspicious for developing pneumonia.
--- NOTE | 2023-03-15 15:24 | EKG ---
Test Date: 2023-03-14 Test Time: 03:50:41 Manager Of Merchandising: JUNIOR MEASUREMENT RESULTS: Intervals: Rate: 91 TX: 164 QRSD: 130 QT: 380 QTc: 467 Sharon: P: 39 TX: 164 QRS: 50 T: 19 INTERPRETIVE STATEMENTS: Normal sinus rhythm Right bundle branch block Abnormal ECG No previous ECG available for comparison Electronically Signed On 03-15-23 15:21:57 CDT by Bhargav Fernandes
== END 2023-03-14 04:46 | disposition home or self-care (01) ==
LOC: ER 03:32
DX: J06.9 Acute upper respiratory infection, unspecified (principal); F41.9 Anxiety disorder, unspecified
CPT/HCPCS: 71045; 81025; 93005

== ENCOUNTER 2024-12-13 12:41 | Emergency (ER) | payer BC ==
--- OUTSIDE RECORDS SUMMARY | 2024-12-13 12:44 | XMS REPORT | Continuity of Care Document ---
Author Name Unknown Address [address] [facility] [address] [place] [address] [facility] Address [address] [place] [address] Care Team Providers Care Driller And Broacher Name Role Phone Pcp, Patient Does Not Have A Primary Care Physic brady Joyce Foley LVN Attending Clinician Claire Roque Attending Clinician [phone] CLAIRE KHAN Attending Clinician Elizabeth davidson Unknown, Attending Attending Clinician Unavailab le GC_GCBZW_Karemberto_S Attending Clinician Unavaila NILDA Sylvester Attending Clinician Unavailab NILDA Molina Attending Clinician Unavailab Noa Appiah RN Attending Clinician Unavailable LULA WILSON Attending Clinician Unavailable Lula Dennison Attending Clinician [phone] Kelli Daly Attending Clinician [phone] KELLI JENKINS Attending Clinician Unavailable WILY VILLALBA Attending Clinician Unavailable Nasra Herring RN Attending Clinician Unavailab FELIPE Puente Attending Clinician Unavailabl e Provider, [facility] Attending Clinician Unavailable Felipe Flores Attending Clinician [phone] Doctor Unassigned, [place] Attending Clinician U navailable Wily Holloway Attending Clinician [phone] [email or web address]_Kalydiayala_S Admitting Clinician Unavaildevon hughes Payers Payer Name Policy Type Policy Number Effective Date Expirati on Date Source [place] [id number] 2020 00:00:00 Problems Condition Name Condition Details Condition Category Status Onset Date Resolution Date Last Treatment Date Treating Clinician Comments Source Obesity Obesity Problem Active 03-12 00:00: 00 [facility] Nausea and vomiting, intractabi lity of vomiting not specified, unspecifie d vomiting type Nausea and vomiting, intractabi lity of vomiting not specified, unspecifie d vomiting type Disease Active 216 00:00: 00 [facility] Fatigue, unspecifie d type Fatigue, unspecifie d type Disease Active 216 00:00: 00 [facility] Cough Cough Disease Active 216 00:00: 00 [facility] Vitamin D deficiency Vitamin D Deficiency Problem Active 06-23 00:00: 00 [facility] Hyperlipid emia Hyperlipid emia Problem Active 30 00:00: 00 [facility] Deep pain on intercours e Deep Pain on Intercours e Problem Active 03-10 00:00: 00 [facility] Irregular periods Irregular Periods Problem Active 03-10 00:00: 00 [facility] Contracept ion care education Contracept ion Care Education Problem Active 03-10 00:00: 00 [facility] Gynecologi sam examinatio n abnormal Gynecologi sam Examinatio n Abnormal Problem Active 03-10 00:00: 00 [facility] Polycystic ovary syndrome Polycystic Ovary Syndrome Problem Active 03-10 00:00: 00 [facility] Allergies, Adverse Reactions, Alerts Allergy Name Allergy Type Status Severity Reaction(s) Onset Date Inactive Date Treating Clinician Comments Source NO KNOWN ALLERGIE S Drug Class Active [facility] Social History Social Habit Start Date Stop Date Quantity Comments Source Sexual orientation U [facility] Alcohol intake 2022-06-16 00:00:00 2022-06-16 00:00:00 Lifetime non-drinker (finding) [facility] History of Social function 2022-06-16 00:00:00 2022-06-16 00:00:00 [facility] Exposure to SARS-CoV-2 (event) 2022-06-05 00:00:00 2022-06-15 12:11:00 Not sure [facility] Alcoholic beverage intake 2021-12-10 00:00:00 2021-12-10 00:00:00 Lifetime non-drinker (finding) [facility] Tobacco use and exposure 2021-07-18 00:00:00 2021-07-18 00:00:00 Smokeless tobacco non-user [facility] Sex assigned at 2000 00:00:00 2000 00:00:00 [facility] Smoking Status Start Date Stop Date Source Never Smoker [facility] Medications Ordered Medication Name Filled Medication Name Start Date Stop Date Current Medication? Ordering Clinician Indication Dosage Frequency Signature (SIG) Comments Components Source cetirizine 10 mg chewable tablet - 00:00: 00 11-29 05:59 :00 Yes [id number] 10mg Take 1 tablet by mouth in the morning for 30 days. [facility] TWIRLA 120-30 mcg/24 hr PTWK 2-22 00:00: 00 Yes 1 PATCH TO SKIN TRANSDERMA L WEEKLY 84 DAYS [facility] XULANE 150-35 mcg/24 hr patch 1- 00:00: 00 Yes APPLY 1 PATCH TO SKIN TRANSDERMA L WEEKLY FOR 84 DAYS [facility] Yuliet 24 Fe 1 mg-20 mcg (24)/75 mg (4) chewable tablet Chew 1 tablet every day by oral route as directed for 84 days. Yuliet 24 Fe 1 mg-20 mcg (24)/75 mg (4) chewable tablet Chew 1 tablet every day by oral route as directed for 84 days. No 1 Q1D Yuliet 24 Fe 1 mg-20 mcg (24)/75 mg (4) chewable tablet Chew 1 tablet every day by oral route as directed for 84 days. [facility] fluticasone propionate 50 mcg/actuati on nasal spray,suspe nsion USE 1 SPRAY IN EACH NOSTRIL IN THE MORNING FOR 7 DAYS. fluticasone propionate 50 mcg/actuati on nasal spray,suspe nsion USE 1 SPRAY IN EACH NOSTRIL IN THE MORNING FOR 7 DAYS. No fluticason e propionate 50 mcg/actuat ion nasal spray,susp ension USE 1 SPRAY IN EACH NOSTRIL IN THE MORNING FOR 7 DAYS. [facility] promethazin e-DM 6.25 mg-15 mg/5 mL oral syrup TAKE 5 ML BY MOUTH 4 (FOUR) TIMES DAILY NEEDED FOR COUGH FOR UP TO 5 DAYS. promethazin e-DM 6.25 mg-15 mg/5 mL oral syrup TAKE 5 ML BY MOUTH 4 (FOUR) TIMES DAILY NEEDED FOR COUGH FOR UP TO 5 DAYS. No promethazi ne-DM 6.25 mg-15 mg/5 mL oral syrup TAKE 5 ML BY MOUTH 4 (FOUR) TIMES DAILY NEEDED FOR COUGH FOR UP TO 5 DAYS. [facility] Immunizations Ordered Immunization Name Filled Immunization Name Date Status Comments Source Meningococcal B, OMV 2022-06-16 00:00:00 Completed [facility] Meningococcal B, OMV 2022-06-16 00:00:00 Completed [facility] SARS-COV-2 COVID-19 MODERNA VACCINE 2021-06-04 00:00:00 Completed [facility] SARS-COV-2 COVID-19 MODERNA 12+ YRS VACCINE 2021-06-04 00:00:00 Completed SARS-COV-2 COVID-19 MODERNA VACCINE 2020-12-25 00:00:00 Completed [facility] SARS-COV-2 COVID-19 MODERNA 12+ YRS VACCINE 2020-12-25 00:00:00 Completed [facility] Vital Signs Vital Name Observation Time Observation Value Comments Ofelia victoria Systolic blood pressure 2024-10-29 21:23:00 108 mm[Hg] [facility] Diastolic blood pressure 2024-10-29 21:23:00 75 mm[Hg] [facility] Heart rate 2024-10-29 21:23:00 102 /[facility] temperature 2024-10-29 21:23:00 36.78 Jessika [facility] Respiratory rate 2024-10-29 21:23:00 18 /min [facility] Body weight 2024-10-29 21:23:00 80.377 kg [facility] BMI 2024-10-29 21:23:00 30.42 kg/m2 [facility] Oxygen saturation in Arterial blood by Pulse oximetry 2024-10-29 21:23:00 99 /min [place] [facility] Height 2024-07-26 00:00:00 64 [in_i] [facility] BP Systolic 2024-07-26 00:00:00 115 mm[Hg] [facility] BMI (Body Mass Index) 2024-07-26 00:00:00 31.8 kg/m2 [facility] BP Diastolic 2024-07-26 00:00:00 73 mm[Hg] [facility] Body Weight 2024-07-26 00:00:00 185 [lb_av] [facility] BP Diastolic 2024-01-03 00:00:00 68 mm[Hg] [facility] BMI (Body Mass Index) 2024-01-03 00:00:00 32.1 kg/m2 [facility] Body Weight 2024-01-03 00:00:00 187.2 [lb_av] [facility] BP Systolic 2024-01-03 00:00:00 111 mm[Hg] [facility] Height 2024-01-03 00:00:00 64 [in_i] [facility] Systolic blood pressure 2022-06-16 13:22:00 116 mm[Hg] [facility] Diastolic blood pressure 2022-06-16 13:22:00 78 mm[Hg] [facility] Heart rate 2022-06-16 13:22:00 96 /min [facility] Body temperature 2022-06-16 13:22:00 36.28 Jessika [facility] Respiratory rate 2022-06-16 13:22:00 18 /min [facility] Body height 2022-06-16 13:22:00 162.6 cm [facility] Body weight 2022-06-16 13:22:00 82.509 kg [facility] BMI 2022-06-16 13:22:00 31.22 kg/m2 [facility] Oxygen saturation in Arterial blood by Pulse oximetry 2022-06-16 13:22:00 97 /min [place] [facility] Procedures Procedure Date / Time Performed Performing Clinician Source POCT SARS-COV-2 ANTIGEN (BINAX NOW) 2024-10-29 22:05:00 Claire Khan [facility] POCT MOLECULAR FLU 2024-10-29 21:25:00 Unknown, Attend ing [facility] POCT MOLECULAR STREP 2024-10-29 21:21:00 Unknown, Atte nding [facility] MENINGOCOCCAL B VACCINE, OMV, 2 DOSE, IM 2022-06-16 13:54:57 Nilda Kumar [facility] Encounters Start Date/Time End Date/Time Encounter Type Admission Type Attending Clinicians Care Facility Care Department Encounter ID Source 2022-02-02 00:00:00 2024-12-09 02:49:10 Orders Only Joyce Foley Candice M [facility] [id number] 350.1.13.10 [id number] [id number] [facility] 2024-11-29 00:00:00 2024-11-29 00:00:00 Gail Remy, ELEMENTARY PRINCIPAL: [address], [place] [address], [place] [address] , [facility]. [facility] - GC_GCBZW_La [facility]* [id number] [facility] 2024-11-21 00:00:00 2024-11-21 09:44:19 Claire Fonseca [facility] [id number] 350.1.13.10 4.2.7.2.686 [id number] [facility] 2024-10-29 15:20:00 2024-10-29 16:16:18 Outpatient R CLAIRE KHAN [facility] [id number] [facility] 2024-10-29 15:20:00 2024-10-29 16:16:18 Urgent Care Claire Khan, Attending REPLACED BY [facility] 1..840.114 350.1.13.10 4.2.7.2.686 [id number] [facility] 2024-07-26 00:00:00 2024-07-26 00:00:00 EVONNE Madden: [address], [address], [place] [id number] , [facility]. [facility] - [facility]_[place] [facility]* [id number] [facility] 2024-01-03 00:00:00 2024-01-03 00:00:00 Outpatient GC_GCBZW_Ka diyala_S [facility] [id number] [facility] 2024-01-03 00:00:00 2024-01-03 00:00:00 EVONNE Madden: [address], [address], [place] [id number] , Ph. [facility] - GC_GCBZW_La [place]* [id number] [facility] 2023-12-31 00:00:00 2023-12-31 00:00:00 Outpatient GC_GCBZW_Ka diyala_S [facility] PRIV [id number] [facility] 2023-08-20 00:00:00 2023-08-20 00:00:00 Outpatient GC_GCBZW_Ka diyala_S [facility] PRIV [id number] [facility] 2022-06-16 08:00:00 2022-06-16 08:59:17 Outpatient R NILDA KUMAR OGECHUKWU [facility] [id number] [facility] 2022-06-16 08:00:00 2022-06-16 08:59:17 Office Visit Nilda Kumar [facility] [id number] 350.1.13.10 4.2.7.2.686 [id number] [facility] 2022-03-30 00:00:00 2022-03-30 00:00:00 Telephone Noa Leon [facility] [id number] 350.1.13.10 4.2.7.2.686 [id number] [facility] 2022-03-29 12:20:00 2022-03-29 12:45:02 Outpatient R LULA WILSON [facility] [id number] [facility] 2022-03-29 12:20:00 2022-03-29 12:45:02 [facility] MED[facility] OFFICE BUILD[facility] [id number] 350.1.13.10 4.2.7.2.686 [id number] [facility] 2022-02-02 00:00:00 2022-02-02 00:00:00 Telephone Alice [facility] BU[facility] [id number] 350.1.13.10 4.2.7.2.686 [id number] [facility] 2021-12-12 00:00:00 2021-12-12 00:00:00 Telephone Alice Kelli [facility] MED[facility] OFFICE BUILDING 1.2.840.114 350.1.13.10 4.2.7.2.686 [id number] [facility] 2021-12-10 11:00:00 2021-12-10 11:57:28 Outpatient R KELLI JENKINS [facility] [id number] [facility] 2021-12-10 11:00:00 2021-12-10 11:57:28 Outpatient R KELLI JENKINS [facility] [id number] [facility] 2021-12-10 11:00:00 2021-12-10 11:57:28 Office Visit Kelli Jenkins REPLACED BY [facility] JIMY[facility] 1.84.114 350.1.13.10 4.2.7.2.686 [id number] [facility] 2021-12-10 00:00:00 2021-12-10 00:00:00 Letter (Out) Kelli Jenkins REPLACED BY [facility] JIMY?[facility] OFFICE BUILD[facility] 1.114 350.1.13.10 4.2.7.2.686 [id number] [facility] 2021-12-09 15:20:00 2021-12-09 15:17:12 Outpatient WILY RAMIREZ [facility] [id number] [facility] 2021-09-02 00:00:00 2021-09-02 00:00:00 Letter (Out) Nasra Herring [facility] 1.114 350.1.13.10 4.2.7.2.686 [id number] [facility] 2021-09-01 13:40:00 2021-09-01 15:02:53 [facility] [id number] [facility] 2021-09-01 13:30:51 2021-09-01 13:50:51 Urgent Care Provider, Kael [facility] francia Pending sale to [facility] MED[facility] OFFICE BUILD[facility] 1.84.114 350.1.13.10 4.2.7.2.686 [id number] [facility] 2021-09-01 00:00:00 2021-09-01 00:00:00 Orders Only Doctor Unassigned, [place] [facility] 1.84.114 350.1.13.10 4.2.7.2.686 [id number] [facility] 2021-07-18 12:26:32 2021-07-18 12:44:54 Ur[facility] [id number] 350.1.13.10 4.2.7.2.686 [id number] [facility] 2021-07-18 12:20:00 2021-07-18 12:20:[address] [facility] [id number] [facility] Results Test Description Test Time Test Comments Results Result Co mments Source [facility] Molecular [id number] 21:37:13* Test Item Value Reference Range Interpretation Comme nts POCT Molecular FluA (test co de = 14283-8) Negative Negative POCT Molecular FluB (test co de = 35033-3) Negative Negative Lab Interpretation (test cod e = 05003-1) Normal [facility] MOLECULAR [id number] 21:28:46* Test Item Value Reference Range Interpretation Comme nts POCT Molecular Strep (test c ode = 68464-2) Negative Negative Lab Interpretation (test cod e = 40667-3) Normal [facility]
[2024-12-13] MEDS ORDERED: TAMSULOSIN 0.4 MG SR CAP ONE (14:02)
[2024-12-13] MEDS ORDERED: ONDANSETRON 4 MG/2 ML VIAL ONE (14:02)
[2024-12-13] MEDS ORDERED: KETOROLAC 30 MG/ML INJ ONE (14:03)
[2024-12-13] MEDS ORDERED: MAGNESIUM SULFATE 1 gm IVPB 1 GM/100 ML BAG IV ONE (14:03)
[2024-12-13] MEDS ORDERED: MORPHINE 2 MG/ML SYR ONE (14:03)
[2024-12-13 14:10] LABS: Specific Gravity 1.028 (1.005-1.030)
[2024-12-13 14:15] LABS: Absolute Basophils 0.1 K/uL (0-0.5); Absolute Eosinophils 0.2 K/uL (0-0.5); Absolute Lymphocytes (CBC) 3.1 K/uL (0.7-4.9); Absolute Monocytes 0.6 K/uL (0.1-1.3); Absolute Neutrophil 6.3 K/uL (1.8-8.0); Basophils % 0.9 % (0-1.3); Eosinophils % 2.3 % (0-4.4); Hematocrit 47.4 % (36.0-45.0); Hemoglobin 16.2 g/dL (12.0-15.0); Lymphocytes % 30.2 % (15.3-44.8); MCH 28.9 pg (27.0-35.0); MCHC 34.2 g/dL (32.0-36.0); MCV 84.3 fL (80-100); MPV 8.2 fL (7.6-11.3); Monocytes % 5.8 % (3.3-12.3); Neutrophils % 60.8 % (41.7-73.7); Platelets 352 thou/uL (152-406); RBC Red Blood Cell Count 5.62 M/uL (3.86-4.86); Red Cell Distribution Width 14.3 % (12.1-15.2)
[2024-12-13 14:16] LABS: Specific Gravity 1.028 (1.005-1.030); Sqamous Epithelial 20-50 /HPF (None Seen); Urine Bacteria 20-50 /HPF (<20); Urine Bilirubin NEGATIVE (Negative); Urine Blood 3+ (Negative); Urine Clarity Extremely Turbid (Clear); Urine Color Light-Yellow (Yellow); Urine Culture Reflex Order NOT NEEDED; Urine Glucose NEGATIVE (Negative); Urine Ketones NEGATIVE (Negative); Urine Microscopic Reflex YN ORDER UMIC; Urine Mucus Slight /HPF (None Seen); Urine Nitrite NEGATIVE (Negative); Urine Protein TRACE (Negative); Urine RBC >50 /HPF (None Seen); Urine Urobilinogen Normal (Normal); Urine WBC 20-50 /HPF (<5); Urine pH 6.5 (5.0-7.0)
--- NOTE | 2024-12-13 14:23 | RAD REPORT ---
EXAMINATION: CT ABDOMEN AND PELVIS WITHOUT CONTRAST CLINICAL INDICATION: FLANK PAIN TECHNIQUE: CT abdomen and pelvis was performed, without IV contrast, as per department protocol. Axia l, sagittal and coronal reconstructions were obtained. One or more of the following dose reduction techniques were used: Automated exposure control, adjustment of the mA and kV according to the patien t size, and iterative reconstruction. Unless otherwise specified, incidental findings do not require dedicated imaging follow-up. COMPARISON: No prior exam. FINDINGS: The lack of intravenous contrast limits the sensitivity of this exam for evaluation of solid visceral organs, vascular structures, and retroperitoneum. LOWER CHEST: The visualized lung bases are clear. LIVER:Normal in size and contour. No focal lesion. Grossly unremarkable gallbladder. SPLEEN: Normal size. No focal lesion. PANCREAS: No mass, ductal dilation, or marcel-pancreatic fluid. ADRENALS: Normal; no mass. KIDNEYS AND URETERS: Small calculi are present in the calyces of both kidneys. No ureter stone or sig nificant hydronephrosis. URINARY BLADDER: Normal contour. GASTROINTESTINAL TRACT: No evidence of bowel obstruction, significant free fluid, free air or abscess . APPENDIX: Normal appendix. LYMPH NODES: No lymphadenopathy. MUSCULOSKELETAL: No acute or suspicious osseous abnormality. ADDITIONAL FINDINGS: 3 cm right ovarian follicle. IMPRESSION: Punctate bilateral calyceal calculi without hydronephrosis.
[2024-12-13 14:27] LABS: Albumin 3.4 g/dL (3.4-5.0); Albumin/Globulin Ratio 0.8 (1.1-1.8); Anion Gap 8.2 mEq/L (5.0-15.0); Bilirubin Total 0.4 mg/dL (0.2-1.0); Globulin 4.4 g/dL (2.3-3.5); Potassium 4.2 mEq/L (3.5-5.1); Protein, Total 7.8 g/dL (6.4-8.2)
--- NOTE | 2024-12-13 14:41 | EDPHYS ---
Physician Documentation [facility] Name: Yahaira So Age: 24 yrs Sex: Female : 2000 Arrival Date: 12/13/2024 Time: 12:41 Bed 18 Private MD: ED Physician Sam Lake HPI: 12/13 13:54 This 24 yrs old Female presents to ER via Ambulatory with complaints of Abdominal Pain, rn Vomiting. 13:54 The patient presents to the emergency department with nausea, vomiting, Flank pain. rn Onset: The symptoms/episode began/occurred this morning. Possible causes: Kidney stone. The symptoms are aggravated by nothing. The symptoms are alleviated by nothing. The patient has experienced similar episodes in the past. Patient reports began this morning with right-sided flank pain, radiates to the anterior abdomen/groin. States feels identical to previous kidney stones. Reports nausea and vomiting. No fever or chills. No trauma.. Historical: - Allergies: 12:47 No Known Allergies; ll1 - PMHx: 12:47 Anxiety; Hypercholesterolemia; Kidney stone; ll1 - PSHx: 12:47 finger and toe removed (extra digits); Lithotripsy; ll1 - Immunization history:: Adult Immunizations up to date. - Infectious Disease History:: Denies. - Social history:: Smoking status: Patient denies any tobacco usage or history of. - Family history:: not pertinent. - Hospitalizations: : No recent hospitalization is reported. ROS: 13:54 Constitutional: Negative for fever, chills, and weight loss, Cardiovascular: Negative rn for chest pain, palpitations, and edema, Respiratory: Negative for shortness of breath, cough, wheezing, and pleuritic chest pain, Abdomen/GI: Positive for right flank pain and right lower abdominal pain. Positive for nausea and vomiting : Negative for injury, bleeding, discharge, and swelling, MS/Extremity: Negative for injury and deformity, Neuro: Negative for headache, weakness, numbness, tingling, and seizure, Exam: 13:54 Constitutional: This is a well developed, well nourished patient who is awake, alert, rn and in no acute distress. Vital Signs: 12:48 BP 126 / 88; Pulse 81; Resp 16; Temp 97.5; Pulse Ox 100% ; Weight 77.11 kg; Height 5 ll1 ft. 4 in. ; Pain 9/10; 15:17 BP 117 / 75; Pulse 72; Resp 16; Temp 97.5; Pulse Ox 100% ; bp 12:48 Body Mass Index 29.18 (77.11 kg, 162.56 cm) ll1 12:48 Pain Scale: Adult ll1 MDM: 12:50 Medical Screening Exam initiated rn 14:40 Differential diagnosis: Nonspecific abd pain, Urinary calculus, urinary tract rn infection. Data reviewed: vital signs, nurses notes, lab test result(s), radiologic studies, CT scan, and as a result, I will discharge patient. Counseling: I had a detailed discussion with the patient and/or guardian regarding the historical points, exam findings, and any diagnostic results supporting the discharge/admit diagnosis, lab results, radiology results, the need for outpatient follow up, to return to the emergency department if symptoms worsen or persist or if there are any questions or concerns that arise at home. Special discussion: I discussed with the patient/guardian in detail that at this point there is no indication for admission to the hospital. It is understood, however, that if the symptoms persist or worsen the patient needs to return immediately for re-evaluation. ED course: CT does not show ureteral or bladder calculus. Patient reports pain much better, possible that she passed a stone prior to CT imaging. Does show WBCs and bacteria in the urine will place on antibiotics and discharge home with return precautions.. 12/13 12:50 Order name: CBC with Diff; Complete Time: 14:32 rn 12/13 12:50 Order name: CMP; Complete Time: 14:32 rn 12/13 12:50 Order name: Lipase; Complete Time: 14:32 rn 12/13 12:50 Order name: Test, Urine; Complete Time: 14:32 rn 12/13 12:50 Order name: Urinalysis w/ reflexes; Complete Time: 14:32 rn 12/13 12:50 Order name: CT Stone Protocol; Complete Time: 14:32 rn 12/13 12:50 Order name: IV Saline Lock; Complete Time: 13:34 rn 12/13 12:50 Order name: Labs collected and sent; Complete Time: 13:34 rn Administered Medications: 14:12 Drug: Ondansetron IVP 4 mg IVP once; over 2 minutes Route: IVP; Site: left antecubital; bp 15:19 Follow up: Response: No adverse reaction bp 14:12 Drug: morphine IVP or IV 2 mg IVP once over 4 mins Route: IVP; Infused Over: 4 mins; bp Site: left antecubital; 15:19 Follow up: Response: No adverse reaction bp 14:12 Drug: Ketorolac IVP 15 mg IVP once Route: IVP; Site: left antecubital; bp 15:19 Follow up: Response: No adverse reaction bp 14:12 Drug: Magnesium Sulfate IVPB 1 grams IVPB once over 1 hrs Route: IVPB; Infused Over: 1 bp hrs; Site: left antecubital; 15:18 Follow up: IV Status: Completed infusion bp 14:12 Not Given (Patient Refused): flomax0.4 mg PO once bp Disposition Summary: 12/13/24 14:41 Discharge Ordered Notes: Location: Home rn Problem: new rn Symptoms: have improved rn Condition: Stable rn Diagnosis - UTI/ Urinary tract infection, site not specified rn - Calculus of kidney rn Followup: rn - With: Private Physician - When: As needed - Reason: Recheck today's complaints, Re-evaluation by your physician Discharge Instructions: - Discharge Summary Sheet rn - Kidney Stones rn - Renal Colic rn - Urinary Tract Infection, Adult rn Forms: - Work release form iw - Medication Reconciliation Form rn - 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 EDMS EDMS 12:50 12:50 COMPREHENSIVE METABOLIC PANEL+C.LAB.BRZ ordered. EDMS EDMS 12:50 12:50 LIPASE+C.LAB.BRZ ordered. EDMS EDMS 12:50 12:50 Test, Urine+UC.LAB.BRZ ordered. EDMS EDMS 12:50 12:50 Urinalysis+U.LAB.BRZ ordered. EDMS EDMS 12:51 12:51 Stone Protocol+CT.RAD.BRZ ordered. EDMS EDMS
--- NOTE | 2024-12-13 14:41 | ER ---
Nurse's Notes [facility] Name: Yahaira So Age: 24 yrs Sex: Female : 2000 Arrival Date: 12/13/2024 Time: 12:41 Bed 18 Private MD: Diagnosis: UTI/ Urinary tract infection, site not specified;Calculus of kidney Presentation: 12/13 12:48 Chief complaint: Patient states: R flank pain with N/V for 1 day. Coronavirus screen: ll1 Client denies travel out of the [place] in the last 14 days. At this time, the client does not indicate any symptoms associated with coronavirus-19. Ebola Screen: Patient denies travel to an Ebola-affected area in the 21 days before illness onset. Initial Sepsis Screen: Does the patient meet any 2 criteria? No. Patient's initial sepsis screen is negative. Does the patient have a suspected source of infection? No. Patient's initial sepsis screen is negative. Risk Assessment: Do you want to hurt yourself or someone else? Patient reports no desire to harm self or others. Onset of symptoms was December 13, 2024. 12:48 Method Of Arrival: Ambulatory ll1 12:48 Acuity: LISA 3 ll1 Triage Assessment: 12:49 General: Appears uncomfortable, Behavior is calm, cooperative, appropriate for age. ll1 Pain: Complains of pain in abdomen Quality of pain is described as aching. GI: Reports nausea, vomiting. : Reports pain in right flank(s). Historical: - Allergies: 12:47 No Known Allergies; ll1 - PMHx: 12:47 Anxiety; Hypercholesterolemia; Kidney stone; ll1 - PSHx: 12:47 finger and toe removed (extra digits); Lithotripsy; ll1 - Immunization history:: Adult Immunizations up to date. - Infectious Disease History:: Denies. - Social history:: Smoking status: Patient denies any tobacco usage or history of. - Family history:: not pertinent. - Hospitalizations: : No recent hospitalization is reported. Screenin:17 [facility] ED Fall Risk Assessment (Adult) History of falling in the last 3 months, bp including since admission No falls in past 3 months (0 pts) Confusion or Disorientation No (0 pts) Intoxicated or Sedated No (0 pts) Impaired Gait No (0 pts) Mobility Assist Device Used No (0 pt) Altered Elimination No (0 pt) Score/Fall Risk Level 0 - 2 = Low Risk Oriented to surroundings. Abuse screen: Denies threats or abuse. Denies injuries from another. Nutritional screening: No deficits noted. Tuberculosis screening: No symptoms or risk factors identified. Assessment: 13:56 Reassessment: Patient and/or family updated on plan of care and expected duration. Pain ll1 level reassessed. 15:18 GI: Bowel sounds present X 4 quads. Abd is soft X 4 quads. bp Vital Signs: 12:48 BP 126 / 88; Pulse 81; Resp 16; Temp 97.5; Pulse Ox 100% ; Weight 77.11 kg; Height 5 ll1 ft. 4 in. ; Pain 9/10; 15:17 BP 117 / 75; Pulse 72; Resp 16; Temp 97.5; Pulse Ox 100% ; bp 12:48 Body Mass Index 29.18 (77.11 kg, 162.56 cm) ll1 12:48 Pain Scale: Adult ll1 ED Course: 12:43 Patient arrived in ED. al6 12:48 Arm band placed on. ll1 12:49 Triage completed. ll1 12:50 Sam Lake MD is Attending Physician. rn 13:34 CBC with Diff Sent. bc6 13:34 CMP Sent. bc6 13:34 Lipase Sent. bc6 13:34 Initial lab(s) drawn, by oh, sent to lab. Inserted saline lock: 20 gauge in left bc6 antecubital area, using aseptic technique. Blood collected. Flushed with 10 mL NS. 13:56 Josefina Woodall, RN is Primary Nurse. iw 13:56 Patient placed in an exam room, on a stretcher. ll1 14:15 CT Stone Protocol In Process Unspecified. EDMS 15:17 Patient has correct armband on for positive identification. bp 15:17 No provider procedures requiring assistance completed. IV discontinued, intact, bp bleeding controlled, No redness/swelling at site. Pressure dressing applied. Administered Medications: 14:12 Drug: Ondansetron IVP 4 mg IVP once; over 2 minutes Route: IVP; Site: left antecubital; bp 15:19 Follow up: Response: No adverse reaction bp 14:12 Drug: morphine IVP or IV 2 mg IVP once over 4 mins Route: IVP; Infused Over: 4 mins; bp Site: left antecubital; 15:19 Follow up: Response: No adverse reaction bp 14:12 Drug: Ketorolac IVP 15 mg IVP once Route: IVP; Site: left antecubital; bp 15:19 Follow up: Response: No adverse reaction bp 14:12 Drug: Magnesium Sulfate IVPB 1 grams IVPB once over 1 hrs Route: IVPB; Infused Over: 1 bp hrs; Site: left antecubital; 15:18 Follow up: IV Status: Completed infusion bp 14:12 Not Given (Patient Refused): flomax0.4 mg PO once bp Medication: 15:17 VIS not applicable for this client. bp Outcome: 14:41 Discharge ordered by . rn 15:17 Discharged to home ambulatory, bp 15:17 Condition: stable 15:17 Discharge instructions given to patient, Instructed on discharge instructions, follow up and referral plans. medication usage, Demonstrated understanding of instructions, follow-up care, medications, Prescriptions given X 1, 15:19 Patient left the ED. bp Signatures: Dispatcher [employer] EDMS Josefina Woodall, RN Sam Wick MD MD rn Peltier, Brian, RN RN bp Lewis, Lynsay, RN RN ll1 Gail Skinner Alissa al6
[2024-12-13 17:50] VITALS: TEMP 97.5; O2SAT 100
[2024-12-13 17:51] VITALS: BP 117/75
== END 2024-12-13 15:19 | disposition home or self-care (01) ==
LOC: ER 12:41
DX: N39.0 Urinary tract infection, site not specified (principal); N20.0 Calculus of kidney; Z87.442 Personal history of urinary calculi
CPT/HCPCS: 85025; 81001; 36415; 81025; 83690; 80053; 76377; 74176; J3475; J2270; J2405

== ENCOUNTER 2024-12-18 17:50 | Emergency (ER) | payer BC ==
--- OUTSIDE RECORDS SUMMARY | 2024-12-18 17:54 | XMS REPORT | Continuity of Care Document ---
Author Name Unknown Address [address] [facility] [address] [place] [address] [facility] Address [address] [facility] [place] [address] Care Team Providers Care Director Of Security Name Role Phone Pcp, Patient Does Not Have A Primary Care Physic brady Joyce Foley LVN Attending Clinician Claire Roque Attending Clinician [phone] CLAIRE KHAN Attending Clinician Elizabeth davidson Unknown, Attending Attending Clinician Unavailab le GC_GCBZW_Karemberto_S Attending Clinician Unavaila NILDA Sylvester Attending Clinician Unavailab NILDA Molina Attending Clinician Unavailab Noa Appiah RN Attending Clinician Unavailable LULA WILSON Attending Clinician Unavailable Lula Dennison Attending Clinician [phone] Kelli Daly Attending Clinician [phone] KELLI JENKINS Attending Clinician Unavailable WILY VILLALBA Attending Clinician Unavailable Nasra Herring RN Attending Clinician Unavailab FELIPE Puente Attending Clinician Unavailabl e Provider, K[facility] Attending Clinician Unavailable Felipe Flores Attending Clinician [phone] Doctor Unassigned, [place] Attending Clinician U navailable Wily Holloway Attending Clinician [phone] [email or web address]_S Admitting Clinician Unavaildevon hughes Payers Payer Name Policy Type Policy Number Effective Date Expirati on Date Source [place] [id number] 2020 00:00:00 Problems Condition Name Condition Details Condition Category Status Onset Date Resolution Date Last Treatment Date Treating Clinician Comments Source Obesity Obesity Problem Active 03-12 00:00: 00 [facility] Nausea and vomiting, intractabi lity of vomiting not specified, unspecifie d vomiting type Nausea and vomiting, intractabi lity of vomiting not specified, unspecifie d vomiting type Disease Active 216 00:00: 00 [facility] Fatigue, unspecifie d type Fatigue, unspecifie d type Disease Active 216 00:00: 00 [facility] Cough Cough Disease Active 216 00:00: 00 [facility] Vitamin D deficiency Vitamin D [...] NO KNOWN ALLERGIE S Drug Class Active [facility] Social History Social Habit Start Date Stop Date Quantity Comments Source Sexual orientation U [facility] Alcohol intake 2022-06-16 00:00:00 2022-06-16 00:00:00 Lifetime non-drinker (finding) [facility] History of Social function 2022-06-16 00:00:00 2022-06-16 00:00:00 [facility] Exposure to SARS-CoV-2 (event) 2022-06-05 00:00:00 2022-06-15 12:11:00 Not sure [facility] Alcoholic beverage intake 2021-12-10 00:00:00 2021-12-10 00:00:00 Lifetime non-drinker (finding) [facility] Tobacco use and exposure 2021-07-18 00:00:00 2021-07-18 00:00:00 Smokeless tobacco non-user [facility] Sex assigned at 2000 00:00:00 2000 00:00:00 [facility] Smoking Status Start Date Stop Date Source Never Smoker [facility] Medications Ordered Medication Name Filled Medication Name Start Date Stop Date Current Medication? Ordering Clinician Indication Dosage Frequency Signature (SIG) Comments Components Source cetirizine 10 mg chewable tablet - 00:00: 00 11-29 05:59 :00 Yes [id number] 10mg Take 1 tablet by mouth in the morning for 30 days. [facility] TWIRLA 120-30 mcg/24 hr PTWK 2-22 00:00: 00 Yes 1 PATCH TO SKIN TRANSDERMA L WEEKLY 84 DAYS [facility] XULANE 150-35 mcg/24 hr patch 1- 00:00: 00 Yes APPLY 1 PATCH TO SKIN TRANSDERMA L WEEKLY FOR 84 DAYS [facility] Yuliet 24 Fe 1 mg-20 [...] NOSTRIL IN THE MORNING FOR 7 DAYS. [facility] promethazin e-DM 6.25 mg-15 mg/5 mL oral [...] FOR COUGH FOR UP TO 5 DAYS. [facility] Immunizations Ordered Immunization Name Filled Immunization Name Date Status Comments Source Meningococcal B, OMV 2022-06-16 00:00:00 Completed [facility] Meningococcal B, OMV 2022-06-16 00:00:00 Completed [facility] SARS-COV-2 COVID-19 MODERNA VACCINE 2021-06-04 00:00:00 Completed [facility] SARS-COV-2 COVID-19 MODERNA 12+ YRS VACCINE 2021-06-04 00:00:00 Completed SARS-COV-2 COVID-19 MODERNA VACCINE 2020-12-25 00:00:00 Completed [facility] SARS-COV-2 COVID-19 MODERNA 12+ YRS VACCINE 2020-12-25 00:00:00 Completed [facility] Vital Signs Vital Name Observation Time Observation Value Comments Ofelia victoria Systolic blood pressure 2024-10-29 21:23:00 108 mm[Hg] [facility] Diastolic blood pressure 2024-10-29 21:23:00 75 mm[Hg] [facility] Heart rate 2024-10-29 21:23:00 102 /min [facility] Body temperature 2024-10-29 21:23:00 36.78 Jessika [facility] Respiratory rate 2024-10-29 21:23:00 18 /min [facility] Body weight 2024-10-29 21:23:00 80.377 kg [facility] BMI 2024-10-29 21:23:00 30.42 kg/m2 [facility] Oxygen saturation in Arterial blood by Pulse oximetry 2024-10-29 21:23:00 99 /min [facility] Height 2024-07-26 00:00:00 64 [in_i] [facility] [...] Systolic blood pressure 2022-06-16 13:22:00 116 mm[Hg] [facility] Diastolic blood pressure 2022-06-16 13:22:00 78 mm[Hg] [facility] Heart rate 2022-06-16 13:22:00 96 /min [facility] Body temperature 2022-06-16 13:22:00 36.28 Jessika [facility] Respiratory rate 2022-06-16 13:22:00 18 /min [facility] Body height 2022-06-16 13:22:00 162.6 cm [facility] Body weight 2022-06-16 13:22:00 82.509 kg [facility] BMI 2022-06-16 13:22:00 31.22 kg/m2 [facility] Oxygen saturation in Arterial blood by Pulse oximetry 2022-06-16 13:22:00 97 /min [facility] Procedures Procedure Date / Time Performed Performing Clinician Source POCT SARS-COV-2 ANTIGEN (BINAX NOW) 2024-10-29 22:05:00 Claire Khan [facility] POCT MOLECULAR FLU 2024-10-29 21:25:00 Unknown, Attend ing [facility] POCT MOLECULAR STREP 2024-10-29 21:21:00 Unknown, Atte nding [facility] MENINGOCOCCAL B VACCINE, OMV, 2 DOSE, IM 2022-06-16 13:54:57 Nilda Kumar [facility] Encounters Start Date/Time End Date/Time Encounter Type Admission Type Attending Clinicians Care Facility Care Department Encounter ID Source 2022-02-02 00:00:00 2024-12-09 02:49:10 Orders Only Joyce Foley Candice M [facility] [id number] 350.1.13.10 4.2.7.2.686 [id number] [facility] 2024-11-29 00:00:00 2024-11-29 00:00:00 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 Formerly [facility] - GC_GCBZW_[place] [facility]* [id number] [facility] 2024-11-21 00:00:00 2024-11-21 09:44:19 Claire Fonseca [facility] 1.2.840.114 350.1.13.10 4.2.7.2.686 [id number] [facility] 2024-10-29 15:20:00 2024-10-29 16:16:18 Outpatient R CLAIRE KHAN [facility] [id number] [facility] 2024-10-29 15:20:00 2024-10-29 16:16:18 Urgent Care Claire Khan, Attending [facility] 1..840.114 350.1.13.10 4.2.7.2.686 [id number] [facility] 2024-07-26 00:00:00 2024-07-26 00:00:00 EVONNE Madden: [address] [place], [address], [place] [phone] , Ph. Formerly [facility] - GC_GCBZW_[place] [facility]* [id number] [facility] 2024-01-03 00:00:00 2024-01-03 00:00:00 Outpatient GC_GCBZW_Ka diyala_S [facility] [id number] [facility] 2024-01-03 00:00:00 2024-01-03 00:00:00 EVONNE Madden: [address] [place], [address], [place] [phone] , Ph. Formerly [facility] - GC_GCBZW_[place] yoon [place]* [id number] [facility] 2023-12-31 00:00:00 2023-12-31 00:00:00 Outpatient GC_GCBZW_Ka diyala_S [facility]IV [id number] [facility] 2023-08-20 00:00:00 2023-08-20 00:00:00 Outpatient GC_GCBZW_Ka diyala_S [facility] [id number] [facility] 2022-06-16 08:00:00 2022-06-16 08:59:17 Outpatient R NILDA KUMAR OGECHUKWU [facility] [id number] [facility] 2022-06-16 08:00:00 2022-06-16 08:59:17 Office Visit Nilda Kumar [facility] 1.2.840.114 350.1.13.10 4.2.7.2.686 [id number] [facility] 2022-03-30 00:00:00 2022-03-30 00:00:00 Telephone Noa Leon [facility] 1.2.840.114 350.1.13.10 4.2.7.2.686 [id number] [facility] 2022-03-29 12:20:00 2022-03-29 12:45:02 Outpatient R LULA WILSON [facility] [id number] [facility] 2022-03-29 12:20:00 2022-03-29 12:45:02 Urgent Care [facility] 1.2.840.114 350.1.13.10 4.2.7.2.686 [id number] [facility] 2022-02-02 00:00:00 2022-02-02 00:00:00 Telephone Alice Kelli [facility] 1.2.840.114 350.1.13.10 4.2.7.2.686 [id number] [facility] 2021-12-12 00:00:00 2021-12-12 00:00:00 Telephone Alice Kelli [facility] 1.2.840.114 350.1.13.10 4.2.7.2.686 [id number] [facility] 2021-12-10 11:00:00 2021-12-10 11:57:28 Outpatient R KELLI JENKINS [facility] [id number] [facility] 2021-12-10 11:00:00 2021-12-10 11:57:28 Outpatient R KELLI JENKINS [facility] [id number] [facility] 2021-12-10 11:00:00 2021-12-10 11:57:28 Office Visit Kelli [facility] 1.84.114 350.1.13.10 4.2.7.2.686 [id number] [facility] 2021-12-10 00:00:00 2021-12-10 00:00:00 Letter (Out) Kelli Jenkins [facility] 1.114 350.1.13.10 4.2.7.2.686 [id number] [facility] 2021-12-09 15:20:00 2021-12-09 15:17:12 Outpatient WILY RAMIREZ [facility] [id number] [facility] 2021-09-02 00:00:00 2021-09-02 00:00:00 Letter (Out) Nasra Herring [facility] 1.114 350.1.13.10 4.2.7.2.686 [id number] [facility] 2021-09-01 13:40:00 2021-09-01 15:02:53 [facility] [id number] [facility] 2021-09-01 13:30:51 2021-09-01 13:50:51 Urgent Care Provider, Kael [facility] francia On license of [facility] 1.84.114 350.1.13.10 4.2.7.2.686 [id number] [facility] 2021-09-01 00:00:00 2021-09-01 00:00:00 Orders Only Doctor Unassigned, [place] [facility] 1.84.114 350.1.13.10 4.2.7.2.686 [id number] [facility] 2021-07-18 12:26:32 2021-07-18 12:44:54 Urgent Care Wily Villalba Shane, [facility] 1.2.840.114 350.1.13.10 4.2.7.2.686 [id number] [facility] 2021-07-18 12:20:00 2021-07-18 12:20:00 Outpatient Gautam WILSON [facility] [id number] [facility] Results Test Description Test Time Test Comments Results Result Co mments Source [facility] Molecular [id number] 21:37:13* Test Item Value Reference Range Interpretation Comme nts POCT Molecular FluA (test co de = 66167-1) Negative Negative POCT Molecular FluB (test co de = 92960-3) Negative Negative Lab Interpretation (test cod e = 90690-9) Normal [facility] MOLECULAR [id number] 21:28:46* Test Item Value Reference Range Interpretation Comme nts POCT Molecular Strep (test c ode = 85799-7) Negative Negative Lab Interpretation (test cod e = 63377-0) Normal [facility]
--- NOTE | 2024-12-18 20:04 | RAD REPORT ---
EXAMINATION: CT ABDOMEN AND PELVIS WITHOUT CONTRAST CLINICAL INDICATION: Female, 24 years old.r flank pain, kidney stones TECHNIQUE: CT abdomen and pelvis was performed, without IV contrast, as per department protocol. Axia l, sagittal and coronal reconstructions were obtained. One or more of the following dose reduction techniques were used: Automated exposure control, adjustment of the mA and/or kV according to the pat ient size, and/or iterative reconstruction. Unless otherwise specified, incidental findings do not require dedicated imaging follow-up. HY0419. IV CONTRAST: Not administered. COMPARISON: 12/13/2024 FINDINGS: The lack of intravenous contrast limits the sensitivity of this exam for evaluation of solid visceral organs, vascular structures, and retroperitoneum. LOWER CHEST: No acute process identified.No significant pericardial effusion. UPPER GI: No significant abnormality. LIVER: No significant focal abnormality. GALLBLADDER/BILE DUCTS: No biliary ductal dilatation.? PANCREAS: No mass, ductal dilation, or marcel-pancreatic fluid. SPLEEN: Unremarkable. ADRENALS: No adrenal masses. KIDNEYS AND URETERS: Mild right-sided hydroureteronephrosis. This is secondary to a 5 mm stone in the distal right ureter. Small bilateral renal calculi. ABDOMINAL AORTA AND OTHER VESSELS: Normal caliber aorta and IVC. PERITONEUM: No abnormal free fluid. No free air. LYMPH NODES: No pathologic lymphadenopathy. ABDOMINAL WALL: Unremarkable SMALL BOWEL/COLON: Small bowel has normal course and caliber. No colonic wall thickening or pericolon ic inflammatory changes.Normal appendix. URINARY BLADDER: Underdistended but grossly unremarkable. REPRODUCTIVE ORGANS: No pathologic process. MUSCULOSKELETAL: No acute or suspicious osseous abnormality. ADDITIONAL FINDINGS: None. IMPRESSION: Mild right-sided hydroureteronephrosis secondary to a 5 mm stone in the right distal ureter.
[2024-12-18] MEDS ORDERED: KETOROLAC 30 MG/ML INJ ONE (20:41)
[2024-12-18] MEDS ORDERED: ONDANSETRON 4 MG/2 ML VIAL ONE (20:41)
[2024-12-18] MEDS ORDERED: NA CHLORIDE 0.9% 1,000 ML ONE (20:42)
[2024-12-18] MEDS ORDERED: MORPHINE 4 MG/ML SYR ONE (20:42)
[2024-12-18 20:44] LABS: Absolute Basophils 0.1 K/uL (0-0.5); Absolute Lymphocytes (CBC) 1.5 K/uL (0.7-4.9); Absolute Monocytes 0.7 K/uL (0.1-1.3); Absolute Neutrophil 12.6 K/uL (1.8-8.0); Basophils % 0.5 % (0-1.3); Eosinophils % 0.2 % (0-4.4); Hematocrit 46.9 % (36.0-45.0); Hemoglobin 15.6 g/dL (12.0-15.0); Lymphocytes % 9.8 % (15.3-44.8); MCH 28.5 pg (27.0-35.0); MCHC 33.2 g/dL (32.0-36.0); MCV 85.6 fL (80-100); MPV 7.5 fL (7.6-11.3); Monocytes % 4.6 % (3.3-12.3); Neutrophils % 84.9 % (41.7-73.7); Nucleated Red Blood Cells % 0.1 % (0-0); Platelets 374 thou/uL (152-406); RBC Red Blood Cell Count 5.48 M/uL (3.86-4.86); Red Cell Distribution Width 13.8 % (12.1-15.2)
[2024-12-18 21:02] LABS: Albumin 3.4 g/dL (3.4-5.0); Albumin/Globulin Ratio 0.7 (1.1-1.8); Bilirubin Total 0.5 mg/dL (0.2-1.0); Globulin 4.7 g/dL (2.3-3.5); Protein, Total 8.1 g/dL (6.4-8.2)
[2024-12-18 21:58] LABS: Specific Gravity 1.029 (1.005-1.030)
[2024-12-18 22:00] LABS: Specific Gravity 1.029 (1.005-1.030); Urine Bacteria None Seen /HPF (<20); Urine Bilirubin NEGATIVE (Negative); Urine Blood Negative (Negative); Urine Clarity Turbid (Clear); Urine Color Light-Yellow (Yellow); Urine Crystals Unidentified Few /HPF (None Seen); Urine Culture Reflex Order NOT NEEDED; Urine Glucose NEGATIVE (Negative); Urine Ketones 3+ (Negative); Urine Microscopic Reflex YN ORDER UMIC; Urine Mucus Slight /HPF (None Seen); Urine Nitrite NEGATIVE (Negative); Urine Protein TRACE (Negative); Urine RBC <5 /HPF (None Seen); Urine Urobilinogen Normal (Normal); Urine WBC <5 /HPF (<5)
--- NOTE | 2024-12-18 22:06 | ER ---
Nurse's Notes [facility] Name: Yahaira So Age: 24 yrs Sex: Female : 2000 Arrival Date: 12/18/2024 Time: 17:50 Bed DX3 Private MD: Diagnosis: Calculus of ureter Presentation: 12/18 18:29 Chief complaint: Patient states: she was diagnosed with kidney stones Wednesday ap3 12/13/24, and is having right sided flank pain that radiates to her right lower abdomen. patient currently rates her pain as a 11/10 on the pain scale. patient is also having nausea and vomiting. Coronavirus screen: At this time, the client does not indicate any symptoms associated with coronavirus-19. Ebola Screen: No symptoms or risks identified at this time. Initial Sepsis Screen: Does the patient meet any 2 criteria? No. Patient's initial sepsis screen is negative. Does the patient have a suspected source of infection? No. Patient's initial sepsis screen is negative. Risk Assessment: Do you want to hurt yourself or someone else? Patient reports no desire to harm self or others. Onset of symptoms was December 13, 2024. 18:29 Method Of Arrival: Ambulatory ap3 18:29 Acuity: LISA 3 ap3 Triage Assessment: 18:31 General: Appears uncomfortable, Behavior is calm, cooperative, appropriate for age. ap3 Pain: Complains of pain in right flank, right lower abdomen Pain currently is 10 out of 10 on a pain scale. Neuro: Level of Consciousness is awake, alert, obeys commands, Oriented to person, place, time, situation, Appropriate for age. Cardiovascular: Patient's skin is warm and dry. Respiratory: Airway is patent Respiratory effort is even, unlabored, Respiratory pattern is regular, symmetrical. GI: Reports nausea, vomiting. : Reports pain in right flank(s). 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 - Infectious Disease History:: Denies. - Social history:: Smoking status: Patient denies any tobacco usage or history of. Screenin:32 [facility] ED Fall Risk Assessment (Adult) History of falling in the last 3 months, ap3 including since admission No falls in past 3 months (0 pts) Confusion or Disorientation No (0 pts) Intoxicated or Sedated No (0 pts) Impaired Gait No (0 pts) Mobility Assist Device Used No (0 pt) Altered Elimination No (0 pt) Score/Fall Risk Level 0 - 2 = Low Risk Oriented to surroundings, Maintained a safe environment, Educated pt \T\ family on fall prevention, incl call for assistance when getting out of bed, Assessed \T\ reinforced patient's understanding of fall precautions, Hourly rounding (assess needs \T\ fall precautionary measures) done, Used ambulatory aids as needed (educated on \T\ assisted with). Abuse screen: Denies threats or abuse. Nutritional screening: No deficits noted. Tuberculosis screening: No symptoms or risk factors identified. Assessment: 20:00 General: Appears uncomfortable, Behavior is cooperative. Pain: Complains of pain in ha1 back Pain radiates to pelvis Pain currently is 9 out of 10 on a pain scale. Quality of pain is described as throbbing. Neuro: Level of Consciousness is awake, alert, obeys commands, Oriented to person, place, time, situation. Cardiovascular: Capillary refill < 3 seconds Patient's skin is warm and dry. Respiratory: Airway is patent Respiratory effort is even, unlabored, Respiratory pattern is regular, symmetrical. GI: Abdomen is round non-distended, Bowel sounds present X 4 quads. Abd is soft and non tender Reports nausea, vomiting. Derm: Skin is pink, warm \T\ dry. 21:20 Reassessment: Patient and/or family updated on plan of care and expected duration. Pain ha1 level reassessed. Patient is alert, oriented x 3, equal unlabored respirations, skin warm/dry/pink. Patient denies pain at this time. Patient states feeling better. Patient states symptoms have improved. 22:14 Reassessment: Patient and/or family updated on plan of care and expected duration. Pain ha1 level reassessed. Patient is alert, oriented x 3, equal unlabored respirations, skin warm/dry/pink. Patient states feeling better. Patient states symptoms have improved. Vital Signs: 18:29 BP 126 / 91; Pulse 86; Resp 18; Temp 97.8(O); Pulse Ox 96% on R/A; Weight 77.56 kg; ap3 Height 5 ft. 4 in. ; Pain 10/10; 21:00 BP 118 / 78; Pulse 74; Resp 17 S; Pulse Ox 98% on R/A; ha1 22:00 BP 125 / 85; Pulse 79; Resp 17 S; Temp 98.3(T); Pulse Ox 98% on R/A; ha1 18:29 Body Mass Index 29.35 (77.56 kg, 162.56 cm) ap3 18:29 Pain Scale: Adult ap3 ED Course: 18:21 Patient arrived in ED. al6 18:23 Oliverio Olea MD is Attending Physician. ec2 18:31 Triage completed. ap3 18:33 Arm band placed on right wrist. ap3 19:46 Stone Protocol In Process Unspecified. EDMS 20:37 Inserted saline lock: 20 gauge in left antecubital area, using aseptic technique. Blood rv1 collected. Flushed with 10 mL NS. 20:37 CBC with Diff Sent. rv1 20:37 CMP Sent. rv1 20:37 Lipase Sent. rv1 20:40 Patient has correct armband on for positive identification. Bed in low position. Call ha1 light in reach. Side rails up X 1. 20:40 Provided Education on: plan of care . ha1 20:41 Attending Physician role handed off by Oliverio Olea MD sp3 20:41 Meghana Villareal MD is Attending Physician. sp3 22:04 Ronal Hanna MD is Referral Physician. sp3 22:14 No provider procedures requiring assistance completed. IV discontinued, intact, ha1 bleeding controlled, No redness/swelling at site. Pressure dressing applied. Administered Medications: 20:42 Drug: morphine IVP or IV 4 mg IVP once over 4 mins Route: IVP; Infused Over: 4 mins; ha1 Site: left antecubital; 21:00 Follow up: Response: No adverse reaction; Pain is decreased; RASS: Alert and Calm (0) ha1 20:45 Drug: Ondansetron IVP 4 mg IVP once; over 2 minutes Route: IVP; Site: left antecubital; ha1 21:00 Follow up: Response: No adverse reaction; Marked relief of symptoms; Nausea is decreasedha1 20:47 Drug: TORadol - Ketorolac IVP 15 mg IVP once Route: IVP; Site: left antecubital; ha1 21:00 Follow up: Response: No adverse reaction; Pain is decreased ha1 20:48 Drug: NS 0.9% IV 1000 ml IV at 1 bolus Per protocol; to be given as a bolus over 60 ha1 minutes Route: IV; Rate: 1 bolus; Site: left antecubital; 22:17 Follow up: Response: No adverse reaction; IV Status: Completed infusion; IV Intake: ha1 1000ml Medication: 22:15 VIS not applicable for this client. ha1 Intake: 22:17 IV: 1000ml; Total: 1000ml. ha1 Outcome: 22:04 Discharge ordered by . sp3 22:14 Discharged to home ambulatory, ha1 22:14 Condition: stable 22:14 Discharge instructions given to patient, Instructed on discharge instructions, follow up and referral plans. medication usage, Demonstrated understanding of instructions, follow-up care, medications, Prescriptions given X 3, 22:19 Patient left the ED. ha1 Signatures: Dispatcher [employer] Shania Momin RN RN ap3 Meghana Villareal MD MD sp3 Cyndi Hall RN RN ha1 Sherrie Spears rv1 Oliverio Olea MD MD ec2 Prabha Chacon al6 Corrections: (The following items were deleted from the chart) 20:55 20:42 TORadol - Ketorolac IVP 15 mg IVP in left antecubital ha1 ha1
--- NOTE | 2024-12-18 22:06 | EDPHYS ---
Physician Documentation [facility] Name: Yahaira So Age: 24 yrs Sex: Female : 2000 Arrival Date: 12/18/2024 Time: 17:50 Bed DX3 Private MD: ED Physician Meghana Villareal HPI: 12/18 18:34 This 24 yrs old Female presents to ER via Ambulatory with complaints of ec2 Possible Kidney Stone. 18:34 Patient with history of kidney stones arrives today with right abdominal and flank ec2 pain. Patient states that she was previously diagnosed with kidney stones having persistent pain. Patient reports some nausea as well as vomiting.. 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 - Infectious Disease History:: Denies. - Social history:: Smoking status: Patient denies any tobacco usage or history of. ROS: 18:35 Constitutional: as per hpi ec2 Exam: 18:35 Constitutional: GEN: NAD Head: atraumatic Eyes: EOMI Ears: External ears are ec2 normal. CV: regular rate LUNGS: no respiratory distress ABD: non-distended, soft, tender in the right abdomen, no guarding or rigidity SKIN: no evidence of rashes MSK: no evidence of trauma Vital Signs: 18:29 BP 126 / 91; Pulse 86; Resp 18; Temp 97.8(O); Pulse Ox 96% on R/A; Weight 77.56 kg; ap3 Height 5 ft. 4 in. ; Pain 10/10; 21:00 BP 118 / 78; Pulse 74; Resp 17 S; Pulse Ox 98% on R/A; ha1 22:00 BP 125 / 85; Pulse 79; Resp 17 S; Temp 98.3(T); Pulse Ox 98% on R/A; ha1 18:29 Body Mass Index 29.35 (77.56 kg, 162.56 cm) ap3 18:29 Pain Scale: Adult ap3 MDM: 18:25 Medical Screening Exam initiated ec2 18:40 Data reviewed: vital signs, nurses notes. ED course: Patient arrives today for ec2 evaluation of right-sided abdominal pain. Examination is revealing for abdominal findings as above. Will obtain lab work, urine studies, CT imaging. DDx include processes such as UTI, pyelonephritis, ureteral stone. 22:03 ED course: Patient with 5 mm stone right distal ureter. WBC count 14,000 however entire sp3 CBC has hemoconcentration and creatinine is 1.15. I believe patient is dehydrated and she received 1 L normal saline. We will cover with Bactrim in the event that there is an infection. UA demonstrates no bacteria and no WBCs. Mild leukocyte esterase noted. Will discharge home on pain medication, Flomax and Bactrim. Follow-up with urology. Vital signs are normal and patient is in no acute distress resting comfortably with pain under control.. 12/18 18:31 Order name: CBC with Diff; Complete Time: 21:42 ec2 12/18 18:31 Order name: CMP; Complete Time: 21:42 ec2 12/18 18:31 Order name: Lipase; Complete Time: 21:42 ec2 12/18 18:31 Order name: Test, Urine; Complete Time: 22:03 ec2 12/18 18:31 Order name: Urinalysis w/ reflexes; Complete Time: 22:03 ec2 12/18 19:46 Order name: Stone Protocol; Complete Time: 20:15 EDMS 12/18 18:31 Order name: IV Saline Lock; Complete Time: 20:37 ec2 12/18 18:31 Order name: Labs collected and sent; Complete Time: 20:37 ec2 Administered Medications: 20:42 Drug: morphine IVP or IV 4 mg IVP once over 4 mins Route: IVP; Infused Over: 4 mins; ha1 Site: left antecubital; 21:00 Follow up: Response: No adverse reaction; Pain is decreased; RASS: Alert and Calm (0) ha1 20:45 Drug: Ondansetron IVP 4 mg IVP once; over 2 minutes Route: IVP; Site: left antecubital; ha1 21:00 Follow up: Response: No adverse reaction; Marked relief of symptoms; Nausea is decreasedha1 20:47 Drug: TORadol - Ketorolac IVP 15 mg IVP once Route: IVP; Site: left antecubital; ha1 21:00 Follow up: Response: No adverse reaction; Pain is decreased ha1 20:48 Drug: NS 0.9% IV 1000 ml IV at 1 bolus Per protocol; to be given as a bolus over 60 ha1 minutes Route: IV; Rate: 1 bolus; Site: left antecubital; 22:17 Follow up: Response: No adverse reaction; IV Status: Completed infusion; IV Intake: ha1 1000ml Disposition Summary: 12/18/24 22:04 Discharge Ordered Notes: Location: Home sp3 Condition: Stable sp3 Diagnosis - Calculus of ureter sp3 Followup: ec2 - With: Private Physician - When: - Reason: Re-evaluation by your physician Followup: sp3 - With: Ronla Hanna MD - When: Upon discharge from the Emergency Department - Reason: Recheck today's complaints Discharge Instructions: - Discharge Summary Sheet ec2 - Kidney Stones, [id number] ec2 Forms: - Medication Reconciliation Form sp3 - Antibiotic Education sp3 - Prescription Opioid Use sp3 - Patient Portal Instructions sp3 - Leadership Thank You Letter sp3 Prescriptions: - Flomax 0.4 mg Oral capsule - take 1 capsule ORAL route every 24 hours; 5 capsule; Refills: 0, Product sp3 Selection Permitted - Tramadol 50 mg Oral Tablet - take 1 tablet ORAL route every 8 hours as needed; 12 tablet; Refills: 0, sp3 Product Selection Permitted - Bactrim DS 800-160 mg Oral Tablet - take 1 tablet ORAL route every 12 hours for 7 days; 14 tablet; Refills: 0, sp3 Product Selection Permitted Signatures: Dispatcher [employer] Shania Momin RN RN ap3 Meghana Villareal MD MD sp3 Cyndi Hall RN RN ha1 Oliverio Olea MD MD ec2 Corrections: (The following items were deleted from the chart) 18:32 18:32 CBC+H.LAB.BRZ ordered. EDMS EDMS 18:32 18:32 COMPREHENSIVE METABOLIC PANEL+C.LAB.BRZ ordered. EDMS EDMS 18:32 18:32 LIPASE+C.LAB.BRZ ordered. EDMS EDMS 18:32 18:32 Test, Urine+UC.LAB.BRZ ordered. EDMS EDMS 18:32 18:32 Urinalysis+U.LAB.BRZ ordered. EDMS EDMS 18:41 18:35 Constitutional: No acute distress ec2 ec2 19:46 18:32 Abdomen Pelvis Wo Con+CT.RAD.BRZ ordered. EDMS EDMS
[2024-12-18 22:25] VITALS: O2SAT 98
[2024-12-18 22:27] VITALS: BP 125/85; TEMP 98.3
== END 2024-12-18 22:19 | disposition home or self-care (01) ==
LOC: ER 17:50
DX: N20.1 Calculus of ureter (principal); Z87.442 Personal history of urinary calculi
CPT/HCPCS: 96361; 85025; 81001; 36415; 81025; 83690; 80053; 76377; 74176; 96375; 96374; 99284; J2405; J7030